=== PATIENT | female | born 1945 | race African-American/Black ===

== ENCOUNTER 2016-07-30 12:18 | Inpatient (IN) ==
[2016-07-30] MEDS ORDERED: FUROSEMIDE 100 MG/10 ML VIAL IV STA (14:17)
[2016-07-30] MEDS ORDERED: methylPREDNISolone SOD SUC 125 MG/2 ML VIAL IV STA (14:17)
[2016-07-30] MEDS ORDERED: cloNIDine 0.1 MG TABLET PO STA (14:17)
[2016-07-30] MEDS ORDERED: ALBUTEROL/IPRATROPIUM 3 ML NEB RESP TX STA (14:17)
[2016-07-30] MEDS ORDERED: cefTRIAXone 1,000 MG in SODIUM CHLORIDE 0.9% 100 ML IV STA (14:17)
[2016-07-30 14:28] LABS: Basophils # 0.1 10*3/uL (0.0-0.2); Eosinophils # 0.2 10*3/uL (0.0-0.87); Eosinophils % 3.5 % (0.00-10.9); Hematocrit 31.4 VOL% (35.7-47.0); Hemoglobin 10.6 GM/DL (12.0-16.0); Immature Granulocytes % 0.4 %; Immature Granulocytes Absolute 0.02 #; Lymphocytes % 20.8 % (21.3-54.2); Mean Corpuscular HGB Conc 33.8 GM/DL (32-36); Mean Corpuscular Hemoglobin 28 PG (27-34); Mean Corpuscular Volume 84.2 FL (87-102); Mean Platelet Volume 8.4 FL (9.6-12.0); Monocytes # 0.3 10*3/uL (0.11-0.8); Monocytes % 5.8 % (1.7-12.7); Neutrophils # 3.3 10*3/uL (1.4-7.4); Neutrophils % 68.5 % (38.7-73.9); Platelet Count 159 T/CUMM (130-400); Red Blood Count 3.73 MC/CUMM (3.8-5.5); Red Cell Distribution Width 16.4 % (9.3-17.3); White Blood Count 4.8 T/CUMM (4-12)
[2016-07-30] MEDS ORDERED: methylPREDNISolone SOD SUC 125 MG/2 ML VIAL ONE (14:32)
[2016-07-30] MEDS ORDERED: FUROSEMIDE 40 MG/4 ML VIAL ONE (14:32)
[2016-07-30] MEDS ORDERED: FUROSEMIDE 20 MG/2 ML VIAL ONE (14:32)
[2016-07-30] MEDS ORDERED: cefTRIAXone 1,000 MG VIAL ONE (14:32)
[2016-07-30] MEDS ORDERED: cloNIDine 0.1 MG TABLET ONE (14:32)
--- NOTE | 2016-07-30 14:40 | Emergency Department Note ---
Vamsi Priest Meredith, am scribing for, and in the presence of, Brandon Hurt MD 13:50. Licha Priest Charles R, MD, personally performed the services described in this documentation, ascribed by Gabby Agustin in my presence, and it is both accurate and complete [id number] . Arrival - Arrival Chief Complaint: Upper Respiratory Stated Complaint: cough,possible pneumonia,sent by clinic ED Nursing Triage Note: pt ambulatory to triage with c/o having cough x 2 weeks pt states she has been on antibiotics and they are not working so she went to Dr. dubon at clinic in [facility] and was told to come here for possible pneumonia. Mode of Arrival: Ambulatory Limitations: No Limitations Source: Patient, Old Records Reviewed, RN Notes Reviewed Time Seen by Provider: 07/30/16 13:45 - History of Present Illness HPI Narrative: Pt is a 71 y/o black female reporting to the ED with c/o cough and shortness of breath for the past 2 weeks. She went to see Dr. Camp in [facility] and was told to come here for possible pneumonia. Pt has been on antibiotics which have not been helping. She has a history of HTN, thyroid disorder, renal failure, arthritis, and anemia. Pt is a some day smoker. She attends dialysis on Sat/ /Sat. Onset (ago): week(s) Allergies/Adverse Reactions: Allergies Allergy/AdvReac Type Severity Reaction Status Date / Time codeine Allergy Severe SHORTNESS Verified 02/22/16 09:11 OF BREATH pineapple Allergy Mild ITCHING Verified 02/22/16 09:11 Home Medications: Home Medications Medication Instructions Recorded Confirmed Type Omeprazole [Prilosec] 40 mg PO DAILY 03/17/15 07/30/16 History Amlodipine Besylate 5 mg PO DAILY 02/22/16 07/30/16 History Calcium Acetate 667 mg PO TID 02/22/16 07/30/16 History Cinacalcet [Sensipar] 30 mg PO BEDTIME 02/22/16 07/30/16 History Review of System - Review of System 12 point system: reviewed and no additional remarkable complaints except as stated - Review of System Respiratory: Present: as per HPI, cough, other (SOB) Medical,Surgical,& Family Hx - Medical History Cardio: History of: Hypertension No history of: Cardiovascular Problems Neurology: No history of: Seizures Endocrine: History of: Thyroid Disorder Respiratory: No history of: Respiratory Problems Renal: History of: Dialysis, Renal Failure No history of: Renal Problems Gastrointestinal: History of: GI Problems (PUD (non-bleeding)) Musculoskeletal: History of: Musculoskeletal Problems (arthritis (mainly hip pain)) Hematology: History of: Anemia (takes iron) - Surgical History HEENT Surgeries: Surgical HX of: Thyroid Surgery Abdominal Surgeries: Surgical HX of: Abdominal Surgery (for esophageal stricture ), EGD Reproductive Surgeries: Surgical HX of;: Breast Surgery (LEFT LUMPECTOMY), Gynecologic Surgery - Family History Family History: Denies;: Additional Family History - Social History Smoking Status: Current some day smoker Frequency of Alcohol Use: None Type of Drug Use: None Exam Vital Signs: Vital Signs Temperature 98.9 F 07/30/16 13:00 Pulse Rate 96 H 07/30/16 14:50 Respiratory Rate 20 07/30/16 14:50 Blood Pressure 206/110 07/30/16 13:00 O2 Sat by Pulse Oximetry 100 07/30/16 14:50 - General General appearance: alert, in no apparent distress - Head Head exam: Present: atraumatic, normocephalic - Eye Eye exam: Present: normal appearance, PERRL, EOMI - ENT ENT exam: Present: mucous membranes moist, normal external ear exam - Neck Neck exam: Present: full ROM, trachea midline. Absent: tenderness, meningismus , lymphadenopathy, thyromegaly - Chest Chest inspection: Present: symmetric chest wall rise. Absent: tenderness, rash - Respiratory Respiratory exam: Present: normal lung sounds bilaterally. Absent: respiratory distress - Cardiovascular Cardiovascular exam: Present: regular rate, normal rhythm, normal heart sounds. Absent: murmur, rubs, gallop - Abdominal Exam Abdominal exam: Present: soft, normal bowel sounds. Absent: distention, tenderness - Extremities Exam Extremities exam: Present: full ROM, normal capillary refill. Absent: tenderness, pedal edema, calf tenderness - Back Exam Back exam: Present: full ROM. Absent: tenderness - Neurological Exam Neurological exam: Present: alert, oriented X3, CN II-XII intact. Absent: motor sensory deficit - Psychiatric Psychiatric exam: Present: normal affect, normal mood - Skin Skin exam: Present: warm, dry, intact, normal color Course - Consultations Consultation #1: Hospitalist will admit patient Time: 15:45 Results - Labs CBC & BMP: 07/30/16 14:15 07/30/16 14:15 Lab Results: I have reviewed the patients labs Labs: Laboratory Tests 07/30/16 14:15 WBC 4.8 RBC 3.73 L Hgb 10.6 L Hct 31.4 L MCV 84.2 L Plt Count 159 MPV 8.4 L Lymph % (Auto) 20.8 L Baso % (Auto) 1.0 H Lymph # (Auto) 1.0 L Laboratory Tests 07/30/16 14:15 Sodium 142 Potassium 4.2 Chloride 101 Carbon Dioxide 27 Anion Gap 18.2 H BUN 64 H Creatinine 7.20 H Alkaline Phosphatase 314 H Albumin 3.3 L Globulin 3.7 H Albumin/Globulin Ratio 0.8 L Influenza A: neg Influenza B: neg Laboratory Tests 07/30/16 14:15 B-Natriuretic Peptide 662 H - Diagnostic Findings Procedure: Chest x-ray: report reviewed by me (Recurrent CHF with additional atelectasis or other pleural-based pathology at the left lung base with small left pleural effusion. ) Disposition Clinical Impression: Fluid overload, Congestive heart failure, ESRD (end stage renal disease) on dialysis, Upper respiratory infection, Bronchitis Case discussed with: patient Disposition: Still a Patient Time of Disposition: 15:46
--- NOTE | 2016-07-30 14:49 | XRay Report ---
Portable chest Date: 07/30/2016 Clinical history: Shortness of breath Comparison: 03/17/2015 Technique: Portable AP sitting chest Findings: The heart is minimally to moderately enlarged with calcification in the aortic knob. Removal of the venous dialysis catheter. Diffuse parenchymal findings especially at the left lung base with small left pleural effusion. Stable mediastinum with degenerative changes. Impression: Recurrent CHF with additional atelectasis or other pleural-based pathology at the left lung base with small left pleural effusion. Follow-up chest x-ray recommended. PROCEDURE INTERPRETED AT [facility] DEPARTMENT OF RADIOLOGY Final Report Signed by: Dr. Crissy Roberts
[2016-07-30 14:52] LABS: Albumin 3.3 G/DL (3.4-5.0); Bilirubin,Total 0.6 MG/DL (0.2-1.0); Calcium 9.3 MG/DL (8.5-10.1); Magnesium 2.4 MG/DL (1.8-2.4); Osmolality,Calculated 299.1 MOS/KG (273-304); Potassium 4.2 MMOL/L (3.5-5.1)
--- NOTE | 2016-07-30 17:06 | Hospitalist Progress Note ---
Assessment and Plan (1) Congestive heart failure Status: Acute Assessment and plan: The source of the heart failure is likely a complication of ESRD; will obtain ECHO and consult nephrology for HD in AM. Current Visit: Yes (2) ESRD (end stage renal disease) on dialysis Status: Chronic Assessment and plan: Will consult nephrology for HD in AM. Current Visit: Yes Hospitalist: Subjective Interval history: This is a unfortunate 71 year-old elderly -[place]ym[place] female with a very extensive medical history of HTN, hypothyroidism, ESRD, arthritis, nicotine abuse, and anemia that presents to the ED after evaluation a local immediate care clinic. Apparently, she was seen there and a CXR was performed was informed that she "pneumonia" and that she should present to the ED for futher evaluation. The patient reports an onset of symptoms 2 week ago with gradual worsening of symptoms as time progressed. She had been seen and prescribed antibiotic therapy; however her symptoms did not improve. She currently undergoes dialysis three times weekly on . Exam - Constitutional Vitals: Period Temp Pulse Resp BP Sys/Chang Pulse Ox Last 24 Hr 98.9 F-98.9 F 92-96 18-20 206-206/110-110 94-100 General appearance: normal weight, no acute distress - Head Head exam: Present: normal inspection, normocephalic, atraumatic. Absent: abrasion, contusion, hematoma - Eye Eye exam: Present: EOMI. Absent: nystagmus Pupils: Present: CELESTINE. Absent: normal accommodation - ENT ENT exam: Present: normal exam - Neck Neck exam: Present: normal inspection. Absent: lymphadenopathy, meningismus, tenderness, thyromegaly - Respiratory Respiratory exam: Present: decreased breath sounds - Cardiovascular Cardiovascular exam: Present: diastolic murmur, regular rate and rhythm, systolic murmur. Absent: carotid bruit, gallop, JVD, rubs, tachycardia - GI/Abdominal GI/Abdominal exam: Present: normal bowel sounds, soft - Extremities Exam Extremities exam: Present: normal inspection, full ROM - Back Exam Back exam: Present: normal inspection - Neurological Exam Neurological exam: Present: alert, oriented X3 - Psychiatric Psychiatric exam: Present: normal affect - Skin Skin exam: Present: normal color, dry Results - Labs CBC & BMP: 07/30/16 14:15 07/30/16 14:15 Lab Results: I have reviewed the past 24 hour labs
[2016-07-30] MEDS ORDERED: traZODone 50 MG TABLET PO PRN (21:32)
[2016-07-30] MEDS ORDERED: DOCUSATE SODIUM 100 MG CAPSULE PO PRN (21:32)
[2016-07-30] MEDS ORDERED: MORPHINE 2 MG/1 ML SYRINGE IV PRN (21:32)
[2016-07-30] MEDS ORDERED: hydrALAZINE 20 MG/1 ML VIAL IV PRN (21:32)
[2016-07-30] MEDS ORDERED: ACETAMINOPHEN 325 MG TABLET PO PRN (21:32)
[2016-07-30] MEDS ORDERED: ONDANSETRON 4 MG/2 ML VIAL IV PRN (21:32)
[2016-07-30] MEDS: CALCIUM ACETATE 667 MG CAPSULE PO SCH (22:07)
[2016-07-30] MEDS: CINACALCET 30 MG TABLET PO SCH (22:07)
--- NOTE | 2016-07-31 07:01 | EKG Report ---
Stationary ECG Study [facility] Test Date: 07/31/2016 7:00:58 AM Pat Name: ROSA WEBSTER Department: Room: 267 Gender: F Cash Posting Representative: TESHA : 1945 Requested by: Jimmy Chavez Order Number: [id number] Reading MD: SAIDA WEIR Intervals [place] Rate: 84 P: 43 MD: 124 QRS: 16 QRSD: 83 T: 33 QT: 384 QTc: 425 Interpretive Statements SINUS RHYTHM POSSIBLE LEFT ATRIAL ABNORMALITY POSSIBLE SEPTAL MYOCARDIAL INFARCTION, OF INDETERMINATE AGE Electronically Signed On 08-01-16 20:43:37 CDT by SAIDA WEIR [email or web address]
--- NOTE | 2016-07-31 07:18 | XRay Report ---
Portable chest Date: 07/31/2016 Clinical history: Shortness of breath Comparison: 07/30/2016 Technique: Portable AP sitting chest Findings: Stable cardiomegaly with calcification in the aortic knob. Progressive parenchymal findings with larger left pleural effusion. Stable mediastinum and osseous structures. Impression: Progressive CHF/bilateral pneumonia with larger small left pleural effusion. PROCEDURE INTERPRETED AT [facility] DEPARTMENT OF RADIOLOGY Final Report Signed by: Dr. Crissy Roberts
--- NOTE | 2016-07-31 07:31 | Hospitalist History & Physical ---
<Petra Chavezda - Last Filed: 07/31/16 07:29> Assessment and Plan (1) Congestive heart failure Status: Acute Assessment and plan: The source of the heart failure is likely a complication of ESRD; will obtain ECHO and consult nephrology for HD in AM. Current Visit: Yes (2) ESRD (end stage renal disease) on dialysis Status: Chronic Assessment and plan: Will consult nephrology for HD in AM. Current Visit: Yes History of Present Illness Chief complaint: Pneumonia History of present illness: This is a unfortunate 71 year-old elderly -Irish female with a very extensive medical history of HTN, hypothyroidism, ESRD, arthritis, nicotine abuse, and anemia that presents to the ED after evaluation a local immediate care clinic. Apparently, she was seen there and a CXR was performed was informed that she "pneumonia" and that she should present to the ED for futher evaluation. The patient reports an onset of symptoms 2 week ago with gradual worsening of symptoms as time progressed. She had been seen and prescribed antibiotic therapy; however her symptoms did not improve. She currently undergoes dialysis three times weekly on . Home Medications Medication Instructions Recorded Confirmed Type Omeprazole [Prilosec] 40 mg PO DAILY 03/17/15 07/30/16 History Amlodipine Besylate 5 mg PO DAILY 02/22/16 07/30/16 History Calcium Acetate 667 mg PO TID 02/22/16 07/30/16 History Cinacalcet [Sensipar] 30 mg PO BEDTIME 02/22/16 07/30/16 History Allergies Allergy/AdvReac Type Severity Reaction Status Date / Time codeine Allergy Severe SHORTNESS Verified 02/22/16 09:11 OF BREATH pineapple Allergy Mild ITCHING Verified 02/22/16 09:11 Medical,Surgical,& Family Hx - Medical History Cardio: History of: Hypertension No history of: Cardiovascular Problems Neurology: No history of: Seizures Endocrine: History of: Thyroid Disorder Respiratory: No history of: Respiratory Problems Renal: History of: Dialysis, Renal Failure No history of: Renal Problems Gastrointestinal: History of: GI Problems (PUD (non-bleeding)) Musculoskeletal: History of: Musculoskeletal Problems (arthritis (mainly hip pain)) Hematology: History of: Anemia (takes iron) - Surgical History HEENT Surgeries: Surgical HX of: Thyroid Surgery Abdominal Surgeries: Surgical HX of: Abdominal Surgery (for esophageal stricture ), EGD Reproductive Surgeries: Surgical HX of;: Breast Surgery (LEFT LUMPECTOMY), Gynecologic Surgery - Family History Family History: Denies;: Additional Family History - Social History Smoking Status: Current some day smoker Frequency of Alcohol Use: None Type of Drug Use: None Exam - Constitutional Vitals: Period Temp Pulse Resp BP Sys/Chang Pulse Ox Last 24 Hr 97.2 F-98.1 F 80-94 16-20 148-182/84-100 100-100 General appearance: normal weight, no acute distress - Head Head exam: Present: normal inspection - Eye Eye exam: Present: EOMI Pupils: Present: CELESTINE - ENT ENT exam: Present: normal exam - Neck Neck exam: Present: normal inspection. Absent: lymphadenopathy, meningismus, tenderness, thyromegaly - Respiratory Respiratory exam: Present: clear to auscultation bilaterally - Cardiovascular Cardiovascular exam: Present: irregular rhythm, regular rate and rhythm. Absent : carotid bruit, diastolic murmur, JVD, systolic murmur, tachycardia - GI/Abdominal GI/Abdominal exam: Present: normal bowel sounds - Extremities Exam Extremities exam: Present: normal inspection, full ROM - Neurological Exam Neurological exam: Present: alert, oriented X3 - Psychiatric Psychiatric exam: Present: normal affect, normal mood - Skin Skin exam: Present: normal color, dry Results - Labs CBC & BMP: 07/30/16 14:15 07/30/16 14:15 Quality Measures - VTE Contraindication to Pharmacological VTE Prophylaxis: Clinical assessment deems Pt at low risk, no prophalaxis needed <Debra Ross - Last Filed: 07/31/16 08:14> History of Present Illness History of present illness: Ms. Stevens is a 71 year old female with ESRD on HD amongst other medical issues presents with progressive SOB and cough. CXR showed pneumonia vs CHF with left effusion. plan IV rocephin/Azithromax SC/BC IV Lasix Nephrology consult Exam - Constitutional Vitals: Period Temp Pulse Resp BP Sys/Chang Pulse Ox Last 24 Hr 97.2 F-98.1 F 80-94 16-20 148-182/84-100 100-100 Results - Labs CBC & BMP: 07/30/16 14:15 07/30/16 14:15
[2016-07-31] MEDS ORDERED: AZITHROMYCIN INJ 250 MG in SODIUM CHLORIDE 0.9% 250 ML IV SCH (08:30)
[2016-07-31] MEDS ORDERED: OMEPRAZOLE 20 MG CAPSULE PO SCH (09:00)
[2016-07-31] MEDS ORDERED: amLODIPine 5 MG TABLET PO SCH (09:00)
[2016-07-31] MEDS: PANTOPRAZOLE 40 MG TABLET PO SCH (09:30)
[2016-07-31] MEDS: CALCIUM ACETATE 667 MG CAPSULE PO SCH ×3 (09:30→20:30)
[2016-07-31 10:26] LABS: Basophils % 0.5 % (0.0-0.8); Hematocrit 30.2 VOL% (35.7-47.0); Hemoglobin 9.8 GM/DL (12.0-16.0); Immature Granulocytes % 0.3 %; Immature Granulocytes Absolute 0.01 #; Lymphocytes # 0.7 10*3/uL (1.4-4.0); Lymphocytes % 17.7 % (21.3-54.2); Mean Corpuscular HGB Conc 32.5 GM/DL (32-36); Mean Corpuscular Hemoglobin 28 PG (27-34); Mean Corpuscular Volume 87.3 FL (87-102); Mean Platelet Volume 9.1 FL (9.6-12.0); Monocytes # 0.3 10*3/uL (0.11-0.8); Monocytes % 7.8 % (1.7-12.7); Neutrophils # 2.8 10*3/uL (1.4-7.4); Neutrophils % 73.7 % (38.7-73.9); Platelet Count 170 T/CUMM (130-400); Red Blood Count 3.46 MC/CUMM (3.8-5.5); Red Cell Distribution Width 16.6 % (9.3-17.3); White Blood Count 3.9 T/CUMM (4-12)
[2016-07-31 10:49] LABS: Alanine Aminotransferase 26 U/L (13-56); Albumin 3.1 G/DL (3.4-5.0); Alkaline Phosphatase 271 U/L (45-117); Aspartate Amino Transferase 18 U/L (0-37); Bilirubin,Total < 0.39 MG/DL (0.2-1.0); Blood Urea Nitrogen 79 MG/DL (7-18); Calcium 8.7 MG/DL (8.5-10.1); Glucose 145 MG/DL (74-106); Magnesium 2.4 MG/DL (1.8-2.4); Osmolality,Calculated 312.8 MOS/KG (273-304); Phosphorous 3.1 MG/DL (2.5-4.9); Potassium 4.4 MMOL/L (3.5-5.1); Sodium 144 MMOL/L (136-145); Total Protein 6.4 G/DL (6.4-8.3)
[2016-07-31 10:54] LABS: Risk Ratio 2.95; Thyroid Stimulating Hormone 0.825 uIU/ml (0.358-3.74); VLDL CHOLESTEROL 23.6 MG/DL
--- NOTE | 2016-07-31 11:57 | Hospitalist Progress Note ---
Assessment and Plan (1) Congestive heart failure Status: Acute Assessment and plan: The source of the heart failure is likely a complication of ESRD. Follow Echo, continue HD Current Visit: Yes (2) Pneumonia Status: Acute Assessment and plan: CXR showed pneumonia vs CHF with left effusion. plan IV rocephin/Azithromax SC/BC IV Lasix, continue HD. Current Visit: Yes (3) ESRD (end stage renal disease) on dialysis Status: Chronic Assessment and plan: continue HD Current Visit: Yes (4) HTN (hypertension) Status: Acute Assessment and plan: increase Norvasc to 5mg bid, follow response Current Visit: Yes Hospitalist: Subjective Interval history: Patient seen today during dialysis. She denies chest pain and SOB Exam - Constitutional Vitals: Period Temp Pulse Resp BP Sys/Chang Pulse Ox Last 24 Hr 97.2 F-98.1 F 80-94 16-20 148-182/84-100 100-100 General appearance: no acute distress - Head Head exam: Present: normal inspection - Respiratory Respiratory exam: Present: decreased breath sounds - Cardiovascular Cardiovascular exam: Present: regular rate and rhythm - GI/Abdominal GI/Abdominal exam: Present: normal bowel sounds - Extremities Exam Extremities exam: Present: normal inspection - Back Exam Back exam: Present: normal inspection - Neurological Exam Neurological exam: Present: alert, oriented X3 Results - Labs CBC & BMP: 07/31/16 10:18 07/31/16 10:18 Lab Results: I have reviewed the past 24 hour labs Quality Measures - VTE Contraindication to Pharmacological VTE Prophylaxis: Clinical assessment deems Pt at low risk, no prophalaxis needed
--- NOTE | 2016-07-31 16:06 | ECHO Report ---
Lacey Stevens Exam Date: 07/31/2016 08:34 Referring Physician: Technologist: Molly Nguyen RDCS Age: 71 Ht (in): Wt (lb): Gender: F Exam Location: [facility] Echo Indications: Chronic kidney disease, unspecified, Heart failure, unspecified, End stage renal disease, UTI, Nicotine dependence, cigarettes, uncomplicated, Essential (primary) hypertension, Shortness of breath, Cough, Cardiac murmur, unspecified, Bronchitis BP: / HR: Rhythm: Sinus Technical Quality: Good IMPRESSIONS Left ventricular ejection fraction is estimated at 55 %. Moderately increased upper septal thickness. Moderately increased right atrial size. Moderately to severely increased left atrial size. Mild-moderate mitral valve regurgitation. Mild tricuspid valve regurgitation. Tricuspid regurgitation velocities suggest a PAP of 63 mmHg. Large Left pleural effusion. MEASUREMENTS (Male / Female) Normal Values 2D ECHO LV Diastolic Diameter PLAX 4.4 cm 4.2 - 5.9 / 3.9 - 5.3 cm LV Systolic Diameter PLAX 2.5 cm LV Fractional Shortening PLAX 42.9 % IVS Diastolic Thickness 0.9 cm 0.6 - 1.0 / 0.6 - 0.9 cm LVPW Diastolic Thickness 0.9 cm 0.6 - 1.0 / 0.6 - 0.9 cm RV Internal Dim ED PLAX 3.2 cm Aortic Root Diameter 2.9 cm LA Systolic Diameter LX 4.5 cm 3.0 - 4.0 / 2.7 - 3.8 cm DOPPLER TR Peak Velocity 365.0 cm/s TR Peak Gradient 53.3 mmHg FINDINGS Left Ventricle Normal left ventricular cavity size. Normal left ventricular wall thickness. Left ventricular ejection fraction is estimated at 55 %.moderately increased upper septal thickness. Right Ventricle The right ventricle is normal in size and function. Right Atrium Moderately increased right atrial size. Left Atrium Moderately to severely increased left atrial size. Mitral Valve Mitral valve sclerosis. Mild mitral annular calcification. Mild- moderate mitral valve regurgitation. Aortic Valve Aortic valve sclerosis without stenosis or regurgitation. Tricuspid Valve Morphologically normal tricuspid valve. Mild tricuspid valve regurgitation. Tricuspid regurgitation velocities suggest a PAP of 63 mmHg. Pulmonic Valve Morphologically normal pulmonic valve without significant stenosis. There is no pulmonic regurgitation. Pericardium Normal pericardium without effusion. large Left pleural effusion. Aorta Normal ascending aorta dimension. Kimo Taylor MD (Electronically Signed) Final Date: 31 July 2016 16:05
[2016-07-31] MEDS: cefTRIAXone 1,000 MG in SODIUM CHLORIDE 0.9% 100 ML IV SCH (16:48)
[2016-07-31] MEDS: AZITHROMYCIN INJ 500 MG in SODIUM CHLORIDE 0.9% 250 ML IV SCH (17:46)
[2016-07-31] MEDS: amLODIPine 5 MG TABLET PO SCH (20:30)
[2016-07-31] MEDS: CINACALCET 30 MG TABLET PO SCH (20:30)
--- NOTE | 2016-07-31 20:43 | Nephrology Consult Note ---
History of Present Illness Chief complaint: ESRD History of present illness: Ms. Stevens is a 71 year old female admitted with shortness of breath and cough productive of clear sputum. She denies fever or hemoptysis. Home Medications Medication Instructions Recorded Confirmed Type Omeprazole [Prilosec] 40 mg PO DAILY 03/17/15 07/30/16 History Amlodipine Besylate 5 mg PO DAILY 02/22/16 07/30/16 History Calcium Acetate 667 mg PO TID 02/22/16 07/30/16 History Cinacalcet [Sensipar] 30 mg PO BEDTIME 02/22/16 07/30/16 History Allergies Allergy/AdvReac Type Severity Reaction Status Date / Time codeine Allergy Severe SHORTNESS Verified 02/22/16 09:11 OF BREATH pineapple Allergy Mild ITCHING Verified 02/22/16 09:11 Medical,Surgical,& Family Hx - Medical History Cardio: History of: Hypertension No history of: Cardiovascular Problems Neurology: No history of: Seizures Endocrine: History of: Thyroid Disorder Respiratory: No history of: Respiratory Problems Renal: History of: Dialysis, Renal Failure No history of: Renal Problems Gastrointestinal: History of: GI Problems (PUD (non-bleeding)) Musculoskeletal: History of: Musculoskeletal Problems (arthritis (mainly hip pain)) Hematology: History of: Anemia (takes iron) - Surgical History HEENT Surgeries: Surgical HX of: Thyroid Surgery Abdominal Surgeries: Surgical HX of: Abdominal Surgery (for esophageal stricture ), EGD Reproductive Surgeries: Surgical HX of;: Breast Surgery (LEFT LUMPECTOMY), Gynecologic Surgery - Family History Family History: Denies;: Additional Family History - Social History Smoking Status: Current some day smoker Frequency of Alcohol Use: None Type of Drug Use: None Review of Systems 12 point system: reviewed and no additional remarkable complaints except as stated Exam - Vital Signs Vital signs: Period Temp Pulse Resp BP Sys/Chang Pulse Ox Last 24 Hr 97.2 F-98.2 F 80-98 16-20 136-182/74-98 96-100 Exam: Gen.: Alert and oriented x3. ENT: Pupils equal round reactive to light. EOMs intact. Mucous membranes moist. Neck: Supple. No JVD or bruit. Cardiovascular: Regular rate and rhythm. No murmur rub or gallop Lungs: Minimal crackles in the bases Abdomen: Soft. Nontender. Positive bowel sounds. No organomegaly Extremities: No edema Results - Labs CBC & BMP: 07/31/16 10:18 07/31/16 10:18 Assessment and Plan (1) ESRD (end stage renal disease) on dialysis Status: Chronic Assessment and plan: 71-year-old woman admitted with: * ESRD. She is seen during dialysis. She is approximately 3 kg above dry weight * Volume overload. * Upper respiratory infection. She is not febrile. Was cell count is normal. She may have a viral infection. Repeat chest x-ray after volume removal * Hypertension * Anemia Current Visit: Yes (2) Fluid overload Status: Acute Current Visit: Yes (3) HTN (hypertension) Status: Acute Current Visit: Yes (4) Upper respiratory infection Status: Acute Current Visit: Yes (5) Anemia Status: Chronic Current Visit: No Qualifiers: Anemia type: other cause Other causes of anemia: chronic disease, kidney Qualified Code(s): N18.9 - Chronic kidney disease, unspecified
[2016-08-01 07:51] LABS: Basophils # 0.1 10*3/uL (0.0-0.2); Basophils % 1.1 % (0.0-0.8); Eosinophils # 0.3 10*3/uL (0.0-0.87); Eosinophils % 4.7 % (0.00-10.9); Hematocrit 32.6 VOL% (35.7-47.0); Hemoglobin 10.5 GM/DL (12.0-16.0); Immature Granulocytes % 0.4 %; Immature Granulocytes Absolute 0.02 #; Lymphocytes # 1.6 10*3/uL (1.4-4.0); Lymphocytes % 29.9 % (21.3-54.2); Mean Corpuscular HGB Conc 32.2 GM/DL (32-36); Mean Corpuscular Hemoglobin 28 PG (27-34); Mean Corpuscular Volume 87.4 FL (87-102); Monocytes # 0.4 10*3/uL (0.11-0.8); Monocytes % 7.3 % (1.7-12.7); Neutrophils % 56.6 % (38.7-73.9); Platelet Count 194 T/CUMM (130-400); Red Blood Count 3.73 MC/CUMM (3.8-5.5); Red Cell Distribution Width 17.2 % (9.3-17.3); White Blood Count 5.3 T/CUMM (4-12)
[2016-08-01 08:16] LABS: Osmolality,Calculated 288.3 MOS/KG (273-304); Potassium 4.1 MMOL/L (3.5-5.1)
[2016-08-01] MEDS: cefTRIAXone 1,000 MG in SODIUM CHLORIDE 0.9% 100 ML IV SCH (08:21)
[2016-08-01] MEDS: CALCIUM ACETATE 667 MG CAPSULE PO SCH ×3 (08:21→20:53)
[2016-08-01] MEDS: amLODIPine 5 MG TABLET PO SCH ×2 (08:21→20:53)
[2016-08-01] MEDS: PANTOPRAZOLE 40 MG TABLET PO SCH (08:22)
[2016-08-01] MEDS: AZITHROMYCIN INJ 500 MG in SODIUM CHLORIDE 0.9% 250 ML IV SCH (09:04)
--- NOTE | 2016-08-01 10:31 | Hospitalist Progress Note ---
Assessment and Plan (1) Congestive heart failure Status: Acute Assessment and plan: The source of the heart failure is likely a complication of ESRD. Echo showed normal LV size, wall thickness wth an EF-55% and moderately increased upper septal thickness. Plan continue with HD For possible dc after session in am Current Visit: Yes (2) Pneumonia Status: Acute Assessment and plan: CXR showed pneumonia vs CHF with left effusion. BC- showed no growth Influenza A and B -negative plan Continue IV rocephin/Azithromax,lasix and HD repeat CXR in am Current Visit: Yes (3) ESRD (end stage renal disease) on dialysis Status: Chronic Assessment and plan: continue HD Current Visit: Yes (4) HTN (hypertension) Status: Acute Assessment and plan: controlled, continue with current regime. Current Visit: Yes Hospitalist: Subjective Interval history: Patient seen this am, she states she feels better. She had an episode of dialysis yesterday.No chest pain, SOB. Exam - Constitutional Vitals: Period Temp Pulse Resp BP Sys/Chang Pulse Ox Last 24 Hr 97.5 F-98.2 F 81-98 16-20 136-159/74-82 95-99 General appearance: no acute distress - Respiratory Respiratory exam: Present: clear to auscultation bilaterally - Cardiovascular Cardiovascular exam: Present: regular rate and rhythm - GI/Abdominal GI/Abdominal exam: Present: normal bowel sounds - Extremities Exam Extremities exam: Present: normal inspection - Neurological Exam Neurological exam: Present: alert, oriented X3 - Psychiatric Psychiatric exam: Present: normal affect Results - Labs CBC & BMP: 08/01/16 07:21 08/01/16 07:21 Lab Results: I have reviewed the past 24 hour labs Quality Measures - VTE Contraindication to Pharmacological VTE Prophylaxis: Clinical assessment deems Pt at low risk, no prophalaxis needed
--- NOTE | 2016-08-01 12:03 | XRay Report ---
Portable chest Date: 08/01/2016 Clinical history: CHF versus pneumonia Comparison: 12/31/2016 Technique: Portable AP sitting chest Findings: The heart is smaller in size. Reduced parenchymal findings with stable left pleural effusion. Stable mediastinum and osseous structures. Osteopenia. Impression: Improved CHF/bilateral pneumonia with stable small left pleural effusion. PROCEDURE INTERPRETED AT [facility] DEPARTMENT OF RADIOLOGY Final Report Signed by: Dr. Crissy Roberts
--- NOTE | 2016-08-01 17:45 | Nephrology Progress Note ---
Nephrology - PN: Subj Interval history: Shortness of breath is much improved. Exam (PN)-Nephrology - Vital Signs Vital signs: Period Temp Pulse Resp BP Sys/Chang Pulse Ox Last 24 Hr 97.5 F-98.3 F 81-102 16-20 136-159/63-82 94-100 Exam: ENT: Normal Cardiovascular: Regular rate and rhythm. No murmur rub or gallop Lungs: Clear Extremities: No edema - Lab 08/01/16 07:21 08/01/16 07:21 Most recent lab results Calcium 9.0 MG/DL (8.5-10.1) 08/01/16 07:21 Phosphorus 3.1 MG/DL (2.5-4.9) 07/31/16 10:18 Magnesium 2.4 MG/DL (1.8-2.4) 07/31/16 10:18 Assessment and Plan (1) ESRD (end stage renal disease) on dialysis Status: Chronic Assessment and plan: 71-year-old woman admitted with: * ESRD. Dialysis tomorrow * Volume overload. Much improved. Additional volume will be removed during dialysis tomorrow * Upper respiratory infection. She is not febrile. Was cell count is normal. She may have a viral infection. Repeat chest x-ray after volume removal * Hypertension * Anemia Current Visit: Yes (2) Fluid overload Status: Acute Current Visit: Yes (3) HTN (hypertension) Status: Acute Current Visit: Yes (4) Upper respiratory infection Status: Acute Current Visit: Yes (5) Anemia Status: Chronic Current Visit: No Qualifiers: Anemia type: other cause Other causes of anemia: chronic disease, kidney Qualified Code(s): N18.9 - Chronic kidney disease, unspecified
[2016-08-01] MEDS: CINACALCET 30 MG TABLET PO SCH (20:53)
[2016-08-02 05:08] LABS: Basophils # 0.1 10*3/uL (0.0-0.2); Basophils % 1.3 % (0.0-0.8); Eosinophils # 0.3 10*3/uL (0.0-0.87); Eosinophils % 5.7 % (0.00-10.9); Hematocrit 32.1 VOL% (35.7-47.0); Hemoglobin 10.5 GM/DL (12.0-16.0); Immature Granulocytes % 0.5 %; Immature Granulocytes Absolute 0.03 #; Lymphocytes # 1.6 10*3/uL (1.4-4.0); Lymphocytes % 27.7 % (21.3-54.2); Mean Corpuscular HGB Conc 32.7 GM/DL (32-36); Mean Corpuscular Hemoglobin 29 PG (27-34); Mean Corpuscular Volume 87.5 FL (87-102); Mean Platelet Volume 8.9 FL (9.6-12.0); Monocytes # 0.4 10*3/uL (0.11-0.8); Monocytes % 7.9 % (1.7-12.7); Neutrophils # 3.2 10*3/uL (1.4-7.4); Neutrophils % 56.9 % (38.7-73.9); Platelet Count 208 T/CUMM (130-400); Red Blood Count 3.67 MC/CUMM (3.8-5.5); Red Cell Distribution Width 17.2 % (9.3-17.3); White Blood Count 5.6 T/CUMM (4-12)
[2016-08-02 05:38] LABS: Potassium 4.3 MMOL/L (3.5-5.1)
[2016-08-02] MEDS: cefTRIAXone 1,000 MG in SODIUM CHLORIDE 0.9% 100 ML IV SCH (08:20)
[2016-08-02] MEDS: amLODIPine 5 MG TABLET PO SCH (08:20)
[2016-08-02] MEDS: PANTOPRAZOLE 40 MG TABLET PO SCH (08:20)
[2016-08-02] MEDS: CALCIUM ACETATE 667 MG CAPSULE PO SCH ×2 (08:20→15:28)
--- NOTE | 2016-08-02 09:57 | Discharge Summary ---
<Miguelina Gordillo - Last Filed: 08/02/16 09:53> Hospital Course - Hospital Course Hospital Course: Ms Stevens is a 71AAF w history of HTN, hypothyroidism, ESRD on HD, arthritis, nicotine abuse, and anemia presenting to ED w pneumonia that failed outpatient treatment. her CXR was showing pneumonia vs CHF w effusion. she has been treated w abx and breathing treatments. BC and flu tests are all negative. dr marshall has been following pt for HD. pt is feeling better and reached maximum hospital benefit so is ready for discharge. - Time spent with patient Time with patient DS: Less than 30 minutes Discharge Plan - Discharge Data Disposition: Disch To Home/Self Care - Discharge Medications New Acetaminophen Tab [Tylenol Tab] 325 mg PO Q4H PRN #0 tablet PRN Reason: fever, headache/body aches Levofloxacin Tab [Levaquin Tab] 250 mg PO DAILY #7 tablet amLODIPine [Norvasc] 5 mg PO BID #60 tablet Continue Omeprazole [Prilosec] 40 mg PO DAILY Cinacalcet [Sensipar] 30 mg PO BEDTIME Calcium Acetate 667 mg PO TID Discontinued Amlodipine Besylate 5 mg PO DAILY - Follow Up or Referral - Forms/Instructions Exam - Constitutional Vitals: Period Temp Pulse Resp BP Sys/Chang Pulse Ox Last 24 Hr 97.6 F-98.3 F 81-89 18-20 143-158/63-88 97-100 Discharge Results Procedures and tests throughout hospitalization: Pending Orders 08/01/16 09:30 Sputum Culture and Gram Stain Routine Labs on day of discharge: Labs from last 24 hours 08/02/16 08/02/16 03:00 03:00 WBC 5.6 RBC 3.67 L Hgb 10.5 L Hct 32.1 L MCV 87.5 MCH 29 MCHC 32.7 RDW 17.2 Plt Count 208 MPV 8.9 L Neut % (Auto) 56.9 Lymph % (Auto) 27.7 Hawkins % (Auto) 7.9 Eos % (Auto) 5.7 Baso % (Auto) 1.3 H Neut # (Auto) 3.2 Lymph # (Auto) 1.6 Hawkins # (Auto) 0.4 Eos # (Auto) 0.3 Baso # (Auto) 0.1 Immature Gran % 0.5 Nucleated RBC % 0.0 Immature Gran # 0.03 Nucleated RBCs # 0.00 Sodium 143 Potassium 4.3 Chloride 103 Carbon Dioxide 25 Anion Gap 19.3 H BUN 52 H D Creatinine 7.20 H GFR Calculation 4 BUN/Creatinine Ratio 7.00 Glucose 69 L Calculated Osmolality 296.0 Calcium 9.0 Preliminary micro results at discharge 08/01/16 09:30 Sputum Culture - Preliminary Sputum Normal Mary at 24 hours DS: Provider Date of admission: 07/30/16 15:44 Primary care physician: Jasmeet Carlos Jr. Attending physician on admission: Debra Ross MD Consults: 07/30/16 21:32 Consult to Case Mgmt/Social Srvs [CONS] Routine Reason for Case Mgmt/Social Srvs: Rehab Consult to Physician [CONS] Routine Comment: Consulting Provider: Rahat Marshall Consulting Provider Notified: No When should Consulting Provider be notified: Now Consult to Specialist Group: Nephrology Person Notified: GLENDY Date Notified: 07/31/16 Time Notified: 09:00 Consult Notification Comment: LEFT MESSAGE OF CONSULT AT 0855 07/30/16 21:37 Consult to Pharmacy [CONS] Routine Reason for Pharmacy Consult: Adjust Meds Renal Funct Discharging clinician: KAILA Hernández Expected date of discharge: 08/02/16 <Debra Ross - Last Filed: 08/02/16 12:32> Hospital Course - Time spent with patient Time with patient DS: Greater than 30 minutes Diagnosis - Discharge Diagnosis (1) Congestive heart failure Status: Acute (2) Pneumonia Status: Acute (3) ESRD (end stage renal disease) on dialysis Status: Chronic (4) HTN (hypertension) Status: Acute Discharge Plan - Discharge Data Condition at Discharge: Stable Discharge Diet: heart healthy Activity: resume usual activities as tolerated - Forms/Instructions Additional Discharge Instructions: Follow with PCP in 1week, follow with Nephrology as scheduled Exam - Constitutional General appearance: no acute distress - Head Head exam: Present: normal inspection - ENT ENT exam: Present: normal exam - Respiratory Respiratory exam: Present: clear to auscultation bilaterally - Cardiovascular Cardiovascular exam: Present: regular rate and rhythm - GI/Abdominal GI/Abdominal exam: Present: normal bowel sounds - Extremities Exam Extremities exam: Present: normal inspection - Back Exam Back exam: Present: normal inspection - Neurological Exam Neurological exam: Present: alert, oriented X3
[2016-08-02] MEDS: AZITHROMYCIN INJ 500 MG in SODIUM CHLORIDE 0.9% 250 ML IV SCH (10:00)
--- NOTE | 2016-08-02 15:16 | Nephrology Progress Note ---
Nephrology - PN: Subj Interval history: Shortness of breath has resolved. No problems during dialysis today Exam (PN)-Nephrology - Vital Signs Vital signs: Period Temp Pulse Resp BP Sys/Chang Pulse Ox Last 24 Hr 97.6 F-98.3 F 81-89 18-20 143-158/63-88 97-100 Exam: ENT: Normal Cardiovascular: Regular rate and rhythm. No murmur rub or gallop Lungs: Clear Extremities: No edema - Lab 08/02/16 03:00 08/02/16 03:00 Most recent lab results Calcium 9.0 MG/DL (8.5-10.1) 08/02/16 03:00 Phosphorus 3.1 MG/DL (2.5-4.9) 07/31/16 10:18 Magnesium 2.4 MG/DL (1.8-2.4) 07/31/16 10:18 Assessment and Plan (1) ESRD (end stage renal disease) on dialysis Status: Chronic Assessment and plan: 71-year-old woman admitted with: * ESRD. Stable during dialysis * Volume overload. Resolved. Dry weight decreased. Agree with plans for discharge * Hypertension * Anemia Current Visit: Yes (2) Fluid overload Status: Acute Current Visit: Yes (3) HTN (hypertension) Status: Acute Current Visit: Yes (4) Upper respiratory infection Status: Acute Current Visit: Yes (5) Anemia Status: Chronic Current Visit: No Qualifiers: Anemia type: other cause Other causes of anemia: chronic disease, kidney Qualified Code(s): N18.9 - Chronic kidney disease, unspecified
[2016-08-02 15:35] VITALS: BP 159/83
--- NOTE | 2016-08-06 16:11 | Physician Query Form ---
CLICK EDIT DOCUMENT TO SELECT QUERY ANSWER --> OK --> SIGN Katy Denise RN Clinical Manager Language W) [phone] (f) [phone] [email or web address] PROVIDERS: Make your selection(s) from the choices in EACH section by typing an "x" and enter comments in the comment section. Please use your independent medical judgment in providing your response. This request does not imply that any particular answer is desired or expected. CLINICAL INDICATORS: (Providers should not edit this section) Based on documentation of "Fluid overload" Acute CHF" BNP of 662. Echo shows EF of 55%. Treated with IV Lasix. Please provide further specificity regarding CHF. ACUITY: ( x) Acute ( ) Chronic ( ) Acute on Chronic ( ) Clinicallly unable to determine TYPE: ( ) Systolic ( ) Diastolic ( ) Combined Systolic/Diastolic ( ) Other, please specify: ( ) Clinically unable to determine ( )x The patient does NOT have CHF COMMENTS: Use of terms such as suspected, likely, or probable (associated with a specific diagnosis that is being evaluated, monitored, or treated as if it exists) are acceptable and can be restated in the discharge summary if not ruled out. [facility]
== END 2016-08-02 16:54 | disposition home or self-care (01) | DRG 193 ==
LOC: N.ED 12:18 → N.EDINP 15:44 → N.TELES 20:05
PROVIDERS: ADMIT Internal Medicine; ATTEND Internal Medicine

== ENCOUNTER 2017-07-02 06:54 | Inpatient (IN) ==
[2017-07-02] MEDS ORDERED: PROPOFOL 200 MG/20 ML VIAL IV ONE (07:10)
[2017-07-02] MEDS ORDERED: PROPOFOL 1,000 MG/100 ML BOTTLE IV ONE ×2 (07:11→11:59)
[2017-07-02] MEDS ORDERED: VECURONIUM 10 MG VIAL IV ONE (07:19)
[2017-07-02] MEDS ORDERED: ROCURONIUM 100 MG/10 ML VIAL IV ONE ×2 (07:20→09:17)
[2017-07-02] MEDS ORDERED: PROPOFOL 200 MG/20 ML VIAL IV STA (07:20)
[2017-07-02] MEDS ORDERED: hydrALAZINE 20 MG/1 ML VIAL IV STA (07:29)
[2017-07-02] MEDS ORDERED: FUROSEMIDE INJ 160 MG in SODIUM CHLORIDE 0.9% 50 ML IV STA (07:29)
[2017-07-02 07:30] LABS: Basophils # 0.1 10*3/uL (0.0-0.2); Basophils % 0.9 % (0.0-0.8); Eosinophils # 0.5 10*3/uL (0.0-0.87); Hematocrit 29.6 VOL% (35.7-47.0); Hemoglobin 9.9 GM/DL (12.0-16.0); Immature Granulocytes % 0.8 %; Immature Granulocytes Absolute 0.09 #; Lymphocytes # 4.3 10*3/uL (1.4-4.0); Lymphocytes % 37.2 % (21.3-54.2); Mean Corpuscular HGB Conc 33.4 GM/DL (32-36); Mean Corpuscular Hemoglobin 29 PG (27-34); Mean Platelet Volume 8.7 FL (9.6-12.0); Monocytes # 0.7 10*3/uL (0.11-0.8); Monocytes % 5.8 % (1.7-12.7); Neutrophils % 51.3 % (38.7-73.9); Platelet Count 265 T/CUMM (130-400); Red Blood Count 3.44 MC/CUMM (3.8-5.5); Red Cell Distribution Width 17.7 % (9.3-17.3); White Blood Count 11.6 T/CUMM (4-12)
[2017-07-02 07:36] LABS: PT Patient Result 10.4 SECS; Partial Thromboplastin Time 24.3 SECS (0-40)
[2017-07-02 07:47] LABS: Albumin 3.4 G/DL (3.4-5.0); Calcium 9.6 MG/DL (8.5-10.1); Osmolality,Calculated 305.1 MOS/KG (273-304); Potassium 5.4 MMOL/L (3.5-5.1); Total Protein 7.9 G/DL (6.4-8.3); Troponin I Only 0.04 NG/ML (0.00-0.045)
[2017-07-02 07:57] LABS: Theophylline < 2.0 UG/ML (10-20)
[2017-07-02] MEDS: PROPOFOL 1,000 MG/100 ML BOTTLE IV SCH ×3 (08:02→21:15)
[2017-07-02] MEDS ORDERED: ALBUTEROL 2.5 MG/3 ML NEB RESP TX PRN (08:22)
[2017-07-02] MEDS ORDERED: LEVOFLOXACIN INJ 500 MG in PREMIX 1 EACH IV ONE (08:30)
[2017-07-02 08:56] LABS: ABG Base Excess 0.7 MMOL/L (-2.5-2.5); ABG HCO3 25.1 MMOL/L (20-26); ABG Oxygen Saturation 99.7 % (95-100); ABG PCO2 43.4 MM HG (35-48); ABG PH 7.384 (7.35-7.45); ABG TCO2 23.6 MMOL/L (23-27)
[2017-07-02] MEDS ORDERED: LEVOFLOXACIN INJ 100 ML IV ONE (09:32)
[2017-07-02 10:07] LABS: Lactic Acid 2.1 MMOL/L (0.4-2.0)
[2017-07-02] MEDS ORDERED: VANCOMYCIN INJ 750 MG in SODIUM CHLORIDE 0.9% 250 ML IV SCH (10:30)
[2017-07-02] MEDS ORDERED: PROPOFOL 1,000 MG/100 ML BOTTLE IV SCH (12:30)
[2017-07-02] MEDS ORDERED: INFLUENZA VIRUS VACCINE 0.5 ML SYRINGE IM ONE (13:00)
[2017-07-02] MEDS ORDERED: IRON SUCROSE 100 MG/5 ML VIAL IV PRN (14:47)
[2017-07-02] MEDS: CALCIUM ACETATE 667 MG CAPSULE PO SCH ×2 (14:58→22:06)
[2017-07-02] MEDS: PANTOPRAZOLE 40 MG VIAL IV SCH (14:58)
[2017-07-02] MEDS: HEPARIN 5,000 UNIT/1 ML VIAL SUBCUT SCH ×2 (14:58→22:48)
[2017-07-02] MEDS: ASPIRIN 325 MG TABLET PO SCH (14:58)
[2017-07-02] MEDS ORDERED: IRON SUCROSE 100 MG/5 ML VIAL IV ONE (15:30)
[2017-07-02 17:34] LABS: CKMB % 4.5 %
[2017-07-02] MEDS ORDERED: DEXTROSE 50% 25 GM/50 ML VIAL IV ONE (17:34)
[2017-07-02] MEDS: DEXTROSE 50% 25 GM/50 ML VIAL IV PRN (17:35)
[2017-07-02 17:39] LABS: Troponin I Only 1.66 NG/ML (0.00-0.045)
[2017-07-02] MEDS ORDERED: CARVEDILOL 6.25 MG TABLET PO SCH (21:00)
[2017-07-02] MEDS ORDERED: CARVEDILOL 3.125 MG TABLET PO SCH (21:00)
[2017-07-02] MEDS: CINACALCET 30 MG TABLET PO SCH (22:06)
[2017-07-02] MEDS: fentaNYL 100 MCG/2 ML VIAL IV PRN (23:26)
[2017-07-03] MEDS: DEXTROSE 50% 25 GM/50 ML VIAL IV PRN ×2 (00:46→06:33)
[2017-07-03] MEDS: fentaNYL 100 MCG/2 ML VIAL IV PRN (03:34)
[2017-07-03 03:53] LABS: ABG Base Excess 7.6 MMOL/L (-2.5-2.5); ABG HCO3 31.4 MMOL/L (20-26); ABG PCO2 22.6 MM HG (35-48); ABG TCO2 25.5 MMOL/L (23-27)
[2017-07-03 04:00] LABS: ABG PH 7.693 (7.35-7.45)
[2017-07-03 04:54] LABS: Basophils % 0.6 % (0.0-0.8); Eosinophils # 0.2 10*3/uL (0.0-0.87); Eosinophils % 2.2 % (0.00-10.9); Hematocrit 25.1 VOL% (35.7-47.0); Hemoglobin 8.8 GM/DL (12.0-16.0); Immature Granulocytes % 0.4 %; Immature Granulocytes Absolute 0.03 #; Lymphocytes # 0.7 10*3/uL (1.4-4.0); Lymphocytes % 10.4 % (21.3-54.2); Mean Corpuscular HGB Conc 35.1 GM/DL (32-36); Mean Corpuscular Hemoglobin 29 PG (27-34); Mean Platelet Volume 9.3 FL (9.6-12.0); Monocytes # 0.6 10*3/uL (0.11-0.8); Monocytes % 9.2 % (1.7-12.7); Neutrophils # 5.3 10*3/uL (1.4-7.4); Neutrophils % 77.2 % (38.7-73.9); Platelet Count 199 T/CUMM (130-400); Red Blood Count 3.06 MC/CUMM (3.8-5.5); Red Cell Distribution Width 17.3 % (9.3-17.3); White Blood Count 6.8 T/CUMM (4-12)
[2017-07-03] MEDS: PROPOFOL 1,000 MG/100 ML BOTTLE IV SCH ×2 (05:25→08:10)
[2017-07-03 05:26] LABS: Calcium 8.8 MG/DL (8.5-10.1); Osmolality,Calculated 272.2 MOS/KG (273-304); Osmolality,Calculated 273.2 MOS/KG (273-304); Potassium 3.7 MMOL/L (3.5-5.1)
[2017-07-03 05:51] LABS: Risk Ratio 3.37
[2017-07-03 06:22] LABS: ABG Base Excess 2.8 MMOL/L (-2.5-2.5); ABG HCO3 26.9 MMOL/L (20-26); ABG Oxygen Saturation 98.3 % (95-100); ABG PCO2 41.8 MM HG (35-48); ABG PH 7.425 (7.35-7.45); ABG TCO2 25.4 MMOL/L (23-27)
[2017-07-03] MEDS: HEPARIN 5,000 UNIT/1 ML VIAL SUBCUT SCH ×3 (06:35→22:31)
[2017-07-03] MEDS: PANTOPRAZOLE 40 MG VIAL IV SCH (09:31)
[2017-07-03] MEDS: ASPIRIN 325 MG TABLET PO SCH (09:31)
[2017-07-03] MEDS: CALCIUM ACETATE 667 MG CAPSULE PO SCH ×3 (09:31→21:32)
[2017-07-03 09:32] LABS: ABG Base Excess 5.4 MMOL/L (-2.5-2.5); ABG HCO3 29.4 MMOL/L (20-26); ABG Oxygen Saturation 99.9 % (95-100); ABG PCO2 41.2 MM HG (35-48); ABG PH 7.465 (7.35-7.45); ABG TCO2 27.3 MMOL/L (23-27)
[2017-07-03] MEDS: CARVEDILOL 6.25 MG TABLET PO SCH ×2 (13:17→21:32)
[2017-07-03 13:21] LABS: ABG Base Excess 2.8 MMOL/L (-2.5-2.5); ABG HCO3 26.9 MMOL/L (20-26); ABG Oxygen Saturation 98.5 % (95-100); ABG PCO2 42.5 MM HG (35-48); ABG PH 7.419 (7.35-7.45); ABG TCO2 25.6 MMOL/L (23-27)
[2017-07-03] MEDS: CINACALCET 30 MG TABLET PO SCH (21:32)
[2017-07-03] MEDS: ATORVASTATIN 20 MG TABLET PO SCH (21:32)
[2017-07-04 05:56] LABS: Basophils # 0.1 10*3/uL (0.0-0.2); Basophils % 0.9 % (0.0-0.8); Eosinophils # 0.3 10*3/uL (0.0-0.87); Eosinophils % 3.8 % (0.00-10.9); Hematocrit 23.7 VOL% (35.7-47.0); Immature Granulocytes % 0.6 %; Immature Granulocytes Absolute 0.04 #; Lymphocytes # 0.9 10*3/uL (1.4-4.0); Lymphocytes % 13.8 % (21.3-54.2); Mean Corpuscular HGB Conc 33.8 GM/DL (32-36); Mean Corpuscular Hemoglobin 29 PG (27-34); Mean Corpuscular Volume 86.2 FL (87-102); Mean Platelet Volume 9.2 FL (9.6-12.0); Monocytes # 0.7 10*3/uL (0.11-0.8); Monocytes % 11.2 % (1.7-12.7); Neutrophils # 4.6 10*3/uL (1.4-7.4); Neutrophils % 69.7 % (38.7-73.9); Platelet Count 212 T/CUMM (130-400); Red Blood Count 2.75 MC/CUMM (3.8-5.5); Red Cell Distribution Width 17.3 % (9.3-17.3); White Blood Count 6.6 T/CUMM (4-12)
[2017-07-04] MEDS: HEPARIN 5,000 UNIT/1 ML VIAL SUBCUT SCH ×3 (06:00→22:57)
[2017-07-04 06:42] LABS: Calcium 8.8 MG/DL (8.5-10.1); Osmolality,Calculated 278.2 MOS/KG (273-304); Potassium 4.3 MMOL/L (3.5-5.1)
[2017-07-04] MEDS ORDERED: LEVOFLOXACIN INJ 250 MG in PREMIX 1 EACH IV SCH (09:00)
[2017-07-04] MEDS ORDERED: POTASSIUM CHLORIDE RIDER 10 MEQ in PREMIX 1 EACH IV PRN (09:36)
[2017-07-04] MEDS ORDERED: MAGNESIUM SULF RIDER 2 GM in PREMIX 1 EACH IV PRN (09:36)
[2017-07-04] MEDS: PANTOPRAZOLE 40 MG VIAL IV SCH (10:13)
[2017-07-04] MEDS: ASPIRIN 325 MG TABLET PO SCH (10:14)
[2017-07-04] MEDS: CALCIUM ACETATE 667 MG CAPSULE PO SCH ×3 (10:14→21:25)
[2017-07-04] MEDS: CARVEDILOL 12.5 MG TABLET PO SCH ×2 (10:14→21:25)
[2017-07-04] MEDS: fentaNYL 100 MCG/2 ML VIAL IV PRN ×3 (10:26→16:10)
[2017-07-04] MEDS: CARVEDILOL 6.25 MG TABLET PO SCH (10:31)
[2017-07-04] MEDS: ATORVASTATIN 20 MG TABLET PO SCH (21:25)
[2017-07-04] MEDS: CINACALCET 30 MG TABLET PO SCH (21:25)
[2017-07-05 05:35] LABS: Basophils % 0.6 % (0.0-0.8); Eosinophils # 0.2 10*3/uL (0.0-0.87); Eosinophils % 4.4 % (0.00-10.9); Hematocrit 21.9 VOL% (35.7-47.0); Hemoglobin 7.5 GM/DL (12.0-16.0); Immature Granulocytes % 0.7 %; Immature Granulocytes Absolute 0.04 #; Lymphocytes # 0.6 10*3/uL (1.4-4.0); Lymphocytes % 11.6 % (21.3-54.2); Mean Corpuscular HGB Conc 34.2 GM/DL (32-36); Mean Corpuscular Hemoglobin 29 PG (27-34); Mean Corpuscular Volume 84.9 FL (87-102); Mean Platelet Volume 8.8 FL (9.6-12.0); Monocytes # 0.8 10*3/uL (0.11-0.8); Monocytes % 15.1 % (1.7-12.7); Neutrophils # 3.7 10*3/uL (1.4-7.4); Neutrophils % 67.6 % (38.7-73.9); Platelet Count 208 T/CUMM (130-400); Red Blood Count 2.58 MC/CUMM (3.8-5.5); Red Cell Distribution Width 16.9 % (9.3-17.3); White Blood Count 5.4 T/CUMM (4-12)
[2017-07-05] MEDS: HEPARIN 5,000 UNIT/1 ML VIAL SUBCUT SCH (05:53)
[2017-07-05] MEDS ORDERED: HEPARIN/NACL 0.9% 2 UNITS/ML 2,000 ML IV ONE (06:35)
[2017-07-05] MEDS ORDERED: LIDOCAINE 1%/EPI INJ 20 ML VIAL ONE (06:35)
[2017-07-05 06:54] LABS: Calcium 9.2 MG/DL (8.5-10.1); Osmolality,Calculated 279.2 MOS/KG (273-304); Potassium 4.3 MMOL/L (3.5-5.1)
[2017-07-05] MEDS ORDERED: diphenhydrAMINE CAP 25 MG CAPSULE PO ONE (07:30)
[2017-07-05] MEDS ORDERED: DIAZEPAM 5 MG TABLET PO ONE (07:30)
[2017-07-05] MEDS: CALCIUM ACETATE 667 MG CAPSULE PO SCH ×3 (07:34→20:16)
[2017-07-05] MEDS: CARVEDILOL 12.5 MG TABLET PO SCH ×2 (07:34→20:16)
[2017-07-05] MEDS: ASPIRIN 325 MG TABLET PO SCH (07:34)
[2017-07-05] MEDS ORDERED: MIDAZOLAM 2 MG/2 ML VIAL ONE (07:44)
[2017-07-05] MEDS ORDERED: fentaNYL 100 MCG/2 ML VIAL ONE (07:44)
[2017-07-05] MEDS: PANTOPRAZOLE 40 MG VIAL IV SCH (11:04)
[2017-07-05] MEDS: traMADol 50 MG TABLET PO PRN (12:10)
[2017-07-05] MEDS: ATORVASTATIN 20 MG TABLET PO SCH (20:16)
[2017-07-05] MEDS: CINACALCET 30 MG TABLET PO SCH (20:16)
[2017-07-06] MEDS: traMADol 50 MG TABLET PO PRN (00:07)
[2017-07-06 05:58] LABS: Calcium 8.9 MG/DL (8.5-10.1); Osmolality,Calculated 276.7 MOS/KG (273-304); Potassium 4.8 MMOL/L (3.5-5.1)
[2017-07-06 06:20] LABS: Basophils % 0.2 % (0.0-0.8); Eosinophils # 0.2 10*3/uL (0.0-0.87); Eosinophils % 4.6 % (0.00-10.9); Hematocrit 19.6 VOL% (35.7-47.0); Hemoglobin 6.8 GM/DL (12.0-16.0); Immature Granulocytes % 0.4 %; Immature Granulocytes Absolute 0.02 #; Lymphocytes # 0.8 10*3/uL (1.4-4.0); Lymphocytes % 16.3 % (21.3-54.2); Mean Corpuscular HGB Conc 34.7 GM/DL (32-36); Mean Corpuscular Hemoglobin 30 PG (27-34); Mean Corpuscular Volume 85.6 FL (87-102); Mean Platelet Volume 9.4 FL (9.6-12.0); Monocytes # 0.6 10*3/uL (0.11-0.8); Monocytes % 11.7 % (1.7-12.7); Neutrophils # 3.2 10*3/uL (1.4-7.4); Neutrophils % 66.8 % (38.7-73.9); Platelet Count 259 T/CUMM (130-400); Red Blood Count 2.29 MC/CUMM (3.8-5.5); Red Cell Distribution Width 17.1 % (9.3-17.3); White Blood Count 4.8 T/CUMM (4-12)
[2017-07-06] MEDS: CALCIUM ACETATE 667 MG CAPSULE PO SCH ×4 (11:30→21:43)
[2017-07-06] MEDS: PANTOPRAZOLE 40 MG VIAL IV SCH (12:53)
[2017-07-06] MEDS: CLOPIDOGREL 75 MG TABLET PO SCH ×2 (12:57→12:58)
[2017-07-06] MEDS: CARVEDILOL 12.5 MG TABLET PO SCH ×2 (12:57→21:42)
[2017-07-06] MEDS: ASPIRIN 325 MG TABLET PO SCH (14:01)
[2017-07-06] MEDS: CINACALCET 30 MG TABLET PO SCH (21:42)
[2017-07-06] MEDS: ATORVASTATIN 20 MG TABLET PO SCH (21:42)
[2017-07-07] MEDS ORDERED: POTASSIUM CHLORIDE RIDER 10 MEQ in PREMIX 1 EACH IV PRN ×2 (08:57→09:12)
[2017-07-07] MEDS ORDERED: MAGNESIUM SULF RIDER 2 GM in PREMIX 1 EACH IV PRN ×2 (08:57→09:12)
[2017-07-07] MEDS: ASPIRIN EC 81 MG TABLET PO SCH (09:36)
[2017-07-07] MEDS: CLOPIDOGREL 75 MG TABLET PO SCH ×2 (09:36→09:40)
[2017-07-07] MEDS: ISOSORBIDE MONONITRATE 30 MG TABLET PO SCH (09:36)
[2017-07-07] MEDS: traMADol 50 MG TABLET PO PRN (09:36)
[2017-07-07] MEDS: CALCIUM ACETATE 667 MG CAPSULE PO SCH ×3 (09:37→21:56)
[2017-07-07] MEDS: CARVEDILOL 12.5 MG TABLET PO SCH ×2 (09:37→21:56)
[2017-07-07] MEDS: PANTOPRAZOLE 40 MG VIAL IV SCH (09:37)
[2017-07-07 09:57] LABS: Basophils # 0.1 10*3/uL (0.0-0.2); Eosinophils # 0.2 10*3/uL (0.0-0.87); Eosinophils % 3.2 % (0.00-10.9); Hematocrit 34.1 VOL% (35.7-47.0); Hemoglobin 11.9 GM/DL (12.0-16.0); Immature Granulocytes % 0.5 %; Immature Granulocytes Absolute 0.03 #; Lymphocytes # 0.8 10*3/uL (1.4-4.0); Mean Corpuscular HGB Conc 34.9 GM/DL (32-36); Mean Corpuscular Hemoglobin 30 PG (27-34); Mean Corpuscular Volume 85.3 FL (87-102); Mean Platelet Volume 8.9 FL (9.6-12.0); Monocytes # 0.7 10*3/uL (0.11-0.8); Monocytes % 10.4 % (1.7-12.7); Neutrophils # 4.6 10*3/uL (1.4-7.4); Neutrophils % 72.9 % (38.7-73.9); Platelet Count 291 T/CUMM (130-400); Red Cell Distribution Width 16.7 % (9.3-17.3); White Blood Count 6.3 T/CUMM (4-12)
[2017-07-07] MEDS: DICLOFENAC 1% GEL 100 GM TUBE TOP SCH ×3 (14:15→21:53)
[2017-07-07] MEDS: CINACALCET 30 MG TABLET PO SCH (21:56)
[2017-07-07] MEDS: ATORVASTATIN 20 MG TABLET PO SCH (21:56)
[2017-07-08 05:18] LABS: Basophils # 0.1 10*3/uL (0.0-0.2); Eosinophils # 0.3 10*3/uL (0.0-0.87); Eosinophils % 4.3 % (0.00-10.9); Hematocrit 33.3 VOL% (35.7-47.0); Hemoglobin 11.1 GM/DL (12.0-16.0); Immature Granulocytes % 0.7 %; Immature Granulocytes Absolute 0.04 #; Lymphocytes # 0.7 10*3/uL (1.4-4.0); Lymphocytes % 11.4 % (21.3-54.2); Mean Corpuscular HGB Conc 33.3 GM/DL (32-36); Mean Corpuscular Hemoglobin 29 PG (27-34); Mean Corpuscular Volume 87.2 FL (87-102); Mean Platelet Volume 8.7 FL (9.6-12.0); Monocytes # 0.7 10*3/uL (0.11-0.8); Monocytes % 12.8 % (1.7-12.7); Neutrophils % 69.8 % (38.7-73.9); Platelet Count 288 T/CUMM (130-400); Red Blood Count 3.82 MC/CUMM (3.8-5.5); Red Cell Distribution Width 16.5 % (9.3-17.3); White Blood Count 5.8 T/CUMM (4-12)
[2017-07-08 05:49] LABS: Calcium 8.7 MG/DL (8.5-10.1); Osmolality,Calculated 273.7 MOS/KG (273-304); Potassium 4.9 MMOL/L (3.5-5.1)
[2017-07-08] MEDS ORDERED: diphenhydrAMINE CAP 25 MG CAPSULE PO ONE (07:00)
[2017-07-08] MEDS ORDERED: DIAZEPAM 5 MG TABLET PO ONE (07:00)
[2017-07-08] MEDS: PANTOPRAZOLE 40 MG VIAL IV SCH (07:36)
[2017-07-08] MEDS: CLOPIDOGREL 75 MG TABLET PO SCH ×3 (07:38→10:07)
[2017-07-08] MEDS: ASPIRIN EC 81 MG TABLET PO SCH ×2 (07:39→10:06)
[2017-07-08] MEDS: CARVEDILOL 12.5 MG TABLET PO SCH ×3 (07:39→20:30)
[2017-07-08] MEDS: ISOSORBIDE MONONITRATE 30 MG TABLET PO SCH ×2 (07:39→10:06)
[2017-07-08] MEDS ORDERED: HEPARIN/NACL 0.9% 2 UNITS/ML 2,000 ML IV ONE (08:01)
[2017-07-08] MEDS ORDERED: LIDOCAINE 1%/EPI INJ 20 ML VIAL ONE (08:01)
[2017-07-08] MEDS ORDERED: fentaNYL 100 MCG/2 ML VIAL ONE (08:21)
[2017-07-08] MEDS ORDERED: MIDAZOLAM 2 MG/2 ML VIAL ONE (08:21)
[2017-07-08] MEDS ORDERED: HEPARIN 5,000 UNIT/1 ML VIAL ONE (08:42)
[2017-07-08] MEDS: DICLOFENAC 1% GEL 100 GM TUBE TOP SCH ×3 (09:00→20:31)
[2017-07-08] MEDS ORDERED: ceFAZolin 1,000 MG VIAL ONE (09:05)
[2017-07-08] MEDS: CALCIUM ACETATE 667 MG CAPSULE PO SCH ×3 (10:06→17:15)
[2017-07-08] MEDS: ATORVASTATIN 20 MG TABLET PO SCH (20:30)
[2017-07-08] MEDS: MORPHINE 2 MG/1 ML SYRINGE IV PRN (20:30)
[2017-07-08] MEDS: CINACALCET 30 MG TABLET PO SCH (20:30)
[2017-07-09] MEDS: CALCIUM ACETATE 667 MG CAPSULE PO SCH ×3 (09:52→17:25)
[2017-07-09] MEDS: ISOSORBIDE MONONITRATE 30 MG TABLET PO SCH (09:52)
[2017-07-09] MEDS: CARVEDILOL 12.5 MG TABLET PO SCH ×2 (09:52→21:11)
[2017-07-09] MEDS: ASPIRIN EC 81 MG TABLET PO SCH (09:52)
[2017-07-09] MEDS: DICLOFENAC 1% GEL 100 GM TUBE TOP SCH ×3 (09:55→21:11)
[2017-07-09] MEDS: PANTOPRAZOLE 40 MG VIAL IV SCH (13:28)
[2017-07-09] MEDS: ATORVASTATIN 20 MG TABLET PO SCH (21:11)
[2017-07-09] MEDS: CINACALCET 30 MG TABLET PO SCH (21:11)
[2017-07-10 05:43] LABS: Basophils # 0.1 10*3/uL (0.0-0.2); Basophils % 1.4 % (0.0-0.8); Eosinophils # 0.3 10*3/uL (0.0-0.87); Eosinophils % 5.2 % (0.00-10.9); Hematocrit 31.3 VOL% (35.7-47.0); Hemoglobin 10.3 GM/DL (12.0-16.0); Immature Granulocytes % 0.7 %; Immature Granulocytes Absolute 0.04 #; Lymphocytes # 0.8 10*3/uL (1.4-4.0); Lymphocytes % 13.9 % (21.3-54.2); Mean Corpuscular HGB Conc 32.9 GM/DL (32-36); Mean Corpuscular Hemoglobin 29 PG (27-34); Mean Corpuscular Volume 87.4 FL (87-102); Mean Platelet Volume 8.8 FL (9.6-12.0); Monocytes # 0.8 10*3/uL (0.11-0.8); Monocytes % 14.6 % (1.7-12.7); Neutrophils # 3.7 10*3/uL (1.4-7.4); Neutrophils % 64.2 % (38.7-73.9); Platelet Count 304 T/CUMM (130-400); Red Blood Count 3.58 MC/CUMM (3.8-5.5); Red Cell Distribution Width 16.9 % (9.3-17.3); White Blood Count 5.8 T/CUMM (4-12)
[2017-07-10 06:22] LABS: Calcium 8.8 MG/DL (8.5-10.1); Osmolality,Calculated 274.2 MOS/KG (273-304); Troponin I Only 0.023 NG/ML (0.00-0.045)
[2017-07-10] MEDS: ASPIRIN EC 81 MG TABLET PO SCH (09:42)
[2017-07-10] MEDS: CARVEDILOL 12.5 MG TABLET PO SCH ×2 (09:42→21:56)
[2017-07-10] MEDS: ISOSORBIDE MONONITRATE 30 MG TABLET PO SCH (09:42)
[2017-07-10] MEDS: CALCIUM ACETATE 667 MG CAPSULE PO SCH ×3 (09:42→17:06)
[2017-07-10] MEDS: DICLOFENAC 1% GEL 100 GM TUBE TOP SCH ×3 (09:44→21:57)
[2017-07-10] MEDS: PANTOPRAZOLE 40 MG VIAL IV SCH (10:12)
[2017-07-10] MEDS: CINACALCET 30 MG TABLET PO SCH (21:56)
[2017-07-10] MEDS: ATORVASTATIN 20 MG TABLET PO SCH (21:56)
[2017-07-11 07:36] LABS: Basophils # 0.1 10*3/uL (0.0-0.2); Basophils % 1.6 % (0.0-0.8); Eosinophils # 0.3 10*3/uL (0.0-0.87); Eosinophils % 5.7 % (0.00-10.9); Hematocrit 31.3 VOL% (35.7-47.0); Hemoglobin 10.4 GM/DL (12.0-16.0); Immature Granulocytes % 0.8 %; Immature Granulocytes Absolute 0.04 #; Lymphocytes # 0.7 10*3/uL (1.4-4.0); Lymphocytes % 13.3 % (21.3-54.2); Mean Corpuscular HGB Conc 33.2 GM/DL (32-36); Mean Corpuscular Hemoglobin 30 PG (27-34); Mean Corpuscular Volume 88.7 FL (87-102); Mean Platelet Volume 8.5 FL (9.6-12.0); Monocytes # 0.7 10*3/uL (0.11-0.8); Monocytes % 13.7 % (1.7-12.7); Neutrophils # 3.3 10*3/uL (1.4-7.4); Neutrophils % 64.9 % (38.7-73.9); Platelet Count 281 T/CUMM (130-400); Red Blood Count 3.53 MC/CUMM (3.8-5.5); Red Cell Distribution Width 16.7 % (9.3-17.3); White Blood Count 5.1 T/CUMM (4-12)
[2017-07-11 08:02] LABS: Osmolality,Calculated 280.2 MOS/KG (273-304)
[2017-07-11] MEDS: CALCIUM ACETATE 667 MG CAPSULE PO SCH ×3 (09:28→16:56)
[2017-07-11] MEDS: ASPIRIN EC 81 MG TABLET PO SCH (13:45)
[2017-07-11] MEDS: CARVEDILOL 12.5 MG TABLET PO SCH ×2 (13:45→21:24)
[2017-07-11] MEDS: PANTOPRAZOLE 40 MG VIAL IV SCH (13:45)
[2017-07-11] MEDS: DICLOFENAC 1% GEL 100 GM TUBE TOP SCH (13:48)
[2017-07-11] MEDS: ISOSORBIDE MONONITRATE 30 MG TABLET PO SCH ×2 (14:02→21:24)
[2017-07-11] MEDS: traMADol 50 MG TABLET PO PRN (16:58)
[2017-07-11] MEDS: ATORVASTATIN 20 MG TABLET PO SCH (21:24)
[2017-07-11] MEDS: CINACALCET 30 MG TABLET PO SCH (21:24)
[2017-07-12 05:02] LABS: Basophils # 0.1 10*3/uL (0.0-0.2); Basophils % 1.7 % (0.0-0.8); Eosinophils # 0.4 10*3/uL (0.0-0.87); Eosinophils % 6.9 % (0.00-10.9); Hematocrit 32.3 VOL% (35.7-47.0); Hemoglobin 10.5 GM/DL (12.0-16.0); Immature Granulocytes % 0.8 %; Immature Granulocytes Absolute 0.05 #; Lymphocytes % 17.1 % (21.3-54.2); Mean Corpuscular HGB Conc 32.5 GM/DL (32-36); Mean Corpuscular Hemoglobin 29 PG (27-34); Mean Corpuscular Volume 89.7 FL (87-102); Mean Platelet Volume 8.9 FL (9.6-12.0); Monocytes # 0.7 10*3/uL (0.11-0.8); Neutrophils # 3.7 10*3/uL (1.4-7.4); Neutrophils % 62.5 % (38.7-73.9); Platelet Count 328 T/CUMM (130-400); Red Cell Distribution Width 16.5 % (9.3-17.3); White Blood Count 5.9 T/CUMM (4-12)
[2017-07-12 05:31] LABS: Calcium 9.3 MG/DL (8.5-10.1); Potassium 4.6 MMOL/L (3.5-5.1)
[2017-07-12] MEDS ORDERED: VANCOMYCIN INJ 1,000 MG in SODIUM CHLORIDE 0.9% 250 ML IV ONE (06:00)
[2017-07-12] MEDS ORDERED: ceFAZolin 1,000 MG in SYRINGE 1 EACH IV ONE (06:30)
[2017-07-12] MEDS: LACTATED RINGERS 1,000 ML IV SCH ×2 (07:27→12:05)
[2017-07-12] MEDS: CALCIUM ACETATE 667 MG CAPSULE PO SCH ×3 (08:00→16:56)
[2017-07-12] MEDS: PANTOPRAZOLE 40 MG VIAL IV SCH (08:30)
[2017-07-12] MEDS: ASPIRIN EC 81 MG TABLET PO SCH (09:00)
[2017-07-12] MEDS ORDERED: TRANEXAMIC ACID 1,000 MG/10 ML VIAL IV ONE (09:21)
[2017-07-12] MEDS ORDERED: BACITRACIN OINT 0.9 GM PACK TOP ONE (09:21)
[2017-07-12] MEDS ORDERED: diphenhydrAMINE CAP 25 MG CAPSULE PO PRN (10:14)
[2017-07-12] MEDS ORDERED: ONDANSETRON 4 MG/2 ML VIAL IV PRN ×2 (10:14→10:50)
[2017-07-12] MEDS ORDERED: MAGNESIUM HYDROXIDE SUSP 30 ML UDCUP PO PRN (10:14)
[2017-07-12] MEDS ORDERED: MORPHINE 2 MG/1 ML SYRINGE IV PRN (10:14)
[2017-07-12] MEDS ORDERED: ONDANSETRON 4 MG/2 ML VIAL ONE ×2 (10:58→11:24)
[2017-07-12] MEDS ORDERED: HYDROmorphone 2 MG/1 ML VIAL ONE (10:58)
[2017-07-12] MEDS: HYDROmorphone 2 MG/1 ML VIAL IV PRN ×2 (11:04→11:14)
[2017-07-12] MEDS ORDERED: ETOMIDATE 40 MG/20 ML VIAL IV ONE (11:24)
[2017-07-12] MEDS ORDERED: SODIUM CHLORIDE 0.9% 100 ML IV ONE (11:24)
[2017-07-12] MEDS ORDERED: GLYCOPYRROLATE 0.4 MG/2 ML VIAL ONE (11:24)
[2017-07-12] MEDS ORDERED: PHENYLEPHRINE 10 MG/1 ML VIAL IV ONE (11:24)
[2017-07-12] MEDS ORDERED: NEOSTIGMINE 10 MG/10 ML VIAL ONE (11:24)
[2017-07-12] MEDS ORDERED: ACETAMINOPHEN 1,000 MG/100 ML VIAL IV ONE (11:24)
[2017-07-12] MEDS ORDERED: fentaNYL 100 MCG/2 ML VIAL ONE (11:24)
[2017-07-12] MEDS ORDERED: SEVOFLURANE 1 UNIT/15 MINUTE INH ONE (11:24)
[2017-07-12] MEDS ORDERED: ROCURONIUM 100 MG/10 ML VIAL IV ONE (11:24)
[2017-07-12] MEDS: CARVEDILOL 12.5 MG TABLET PO SCH ×2 (12:30→20:24)
[2017-07-12] MEDS: ISOSORBIDE MONONITRATE 30 MG TABLET PO SCH ×2 (12:30→20:24)
[2017-07-12] MEDS: MORPHINE 2 MG/1 ML SYRINGE IV PRN (14:52)
[2017-07-12] MEDS: ceFAZolin 1,000 MG in SYRINGE 1 EACH IV SCH ×2 (15:00→21:55)
[2017-07-12] MEDS: ATORVASTATIN 20 MG TABLET PO SCH (20:24)
[2017-07-12] MEDS: CINACALCET 30 MG TABLET PO SCH (20:24)
[2017-07-12] MEDS: DOCUSATE SODIUM 100 MG CAPSULE PO SCH (20:24)
[2017-07-13] MEDS: MORPHINE 2 MG/1 ML SYRINGE IV PRN (03:35)
[2017-07-13] MEDS: LACTATED RINGERS 1,000 ML IV SCH ×3 (03:41→21:59)
[2017-07-13 05:47] LABS: Basophils # 0.1 10*3/uL (0.0-0.2); Basophils % 0.8 % (0.0-0.8); Eosinophils # 0.3 10*3/uL (0.0-0.87); Eosinophils % 2.9 % (0.00-10.9); Hematocrit 27.5 VOL% (35.7-47.0); Hemoglobin 9.3 GM/DL (12.0-16.0); Immature Granulocytes % 0.6 %; Immature Granulocytes Absolute 0.05 #; Lymphocytes # 0.9 10*3/uL (1.4-4.0); Lymphocytes % 9.8 % (21.3-54.2); Mean Corpuscular HGB Conc 33.8 GM/DL (32-36); Mean Corpuscular Hemoglobin 30 PG (27-34); Mean Corpuscular Volume 87.9 FL (87-102); Mean Platelet Volume 8.5 FL (9.6-12.0); Monocytes # 0.9 10*3/uL (0.11-0.8); Monocytes % 10.4 % (1.7-12.7); Neutrophils # 6.5 10*3/uL (1.4-7.4); Neutrophils % 75.5 % (38.7-73.9); Platelet Count 307 T/CUMM (130-400); Red Blood Count 3.13 MC/CUMM (3.8-5.5); Red Cell Distribution Width 16.2 % (9.3-17.3); White Blood Count 8.7 T/CUMM (4-12)
[2017-07-13 06:31] LABS: Calcium 8.3 MG/DL (8.5-10.1); Osmolality,Calculated 280.4 MOS/KG (273-304); Potassium 5.7 MMOL/L (3.5-5.1)
[2017-07-13 06:32] LABS: Calcium 8.4 MG/DL (8.5-10.1); Osmolality,Calculated 280.4 MOS/KG (273-304); Potassium 5.6 MMOL/L (3.5-5.1)
[2017-07-13] MEDS: CALCIUM ACETATE 667 MG CAPSULE PO SCH ×3 (09:00→16:48)
[2017-07-13] MEDS: DOCUSATE SODIUM 100 MG CAPSULE PO SCH ×2 (09:00→22:00)
[2017-07-13] MEDS: CARVEDILOL 12.5 MG TABLET PO SCH ×2 (09:00→22:01)
[2017-07-13] MEDS: ASPIRIN EC 81 MG TABLET PO SCH (09:00)
[2017-07-13] MEDS: PANTOPRAZOLE 40 MG VIAL IV SCH (09:00)
[2017-07-13] MEDS: ISOSORBIDE MONONITRATE 30 MG TABLET PO SCH ×2 (09:00→22:00)
[2017-07-13] MEDS: CINACALCET 30 MG TABLET PO SCH (22:00)
[2017-07-13] MEDS: ATORVASTATIN 20 MG TABLET PO SCH (22:00)
[2017-07-14 05:22] LABS: Basophils # 0.1 10*3/uL (0.0-0.2); Basophils % 0.7 % (0.0-0.8); Eosinophils # 0.4 10*3/uL (0.0-0.87); Eosinophils % 4.3 % (0.00-10.9); Hematocrit 25.7 VOL% (35.7-47.0); Hemoglobin 8.8 GM/DL (12.0-16.0); Immature Granulocytes % 0.9 %; Immature Granulocytes Absolute 0.08 #; Lymphocytes # 0.7 10*3/uL (1.4-4.0); Mean Corpuscular HGB Conc 34.2 GM/DL (32-36); Mean Corpuscular Hemoglobin 30 PG (27-34); Mean Corpuscular Volume 88.3 FL (87-102); Mean Platelet Volume 8.9 FL (9.6-12.0); Monocytes % 11.5 % (1.7-12.7); Neutrophils # 6.5 10*3/uL (1.4-7.4); Neutrophils % 74.6 % (38.7-73.9); Platelet Count 250 T/CUMM (130-400); Red Blood Count 2.91 MC/CUMM (3.8-5.5); Red Cell Distribution Width 16.1 % (9.3-17.3); White Blood Count 8.8 T/CUMM (4-12)
[2017-07-14 05:53] LABS: Calcium 8.7 MG/DL (8.5-10.1); Osmolality,Calculated 279.8 MOS/KG (273-304); Potassium 4.4 MMOL/L (3.5-5.1)
[2017-07-14] MEDS: LACTATED RINGERS 1,000 ML IV SCH ×2 (07:54→12:45)
[2017-07-14] MEDS: PANTOPRAZOLE 40 MG VIAL IV SCH (09:48)
[2017-07-14] MEDS: CARVEDILOL 12.5 MG TABLET PO SCH ×2 (09:48→21:22)
[2017-07-14] MEDS: ASPIRIN EC 81 MG TABLET PO SCH (09:48)
[2017-07-14] MEDS: ISOSORBIDE MONONITRATE 30 MG TABLET PO SCH ×2 (09:48→21:22)
[2017-07-14] MEDS: DOCUSATE SODIUM 100 MG CAPSULE PO SCH ×2 (09:48→21:22)
[2017-07-14] MEDS: CALCIUM ACETATE 667 MG CAPSULE PO SCH ×3 (09:48→17:30)
[2017-07-14] MEDS: PANTOPRAZOLE 40 MG TABLET PO SCH (17:30)
[2017-07-14] MEDS: CINACALCET 30 MG TABLET PO SCH (21:21)
[2017-07-14] MEDS: ATORVASTATIN 20 MG TABLET PO SCH (21:22)
[2017-07-15 05:31] LABS: Basophils # 0.1 10*3/uL (0.0-0.2); Basophils % 0.7 % (0.0-0.8); Eosinophils # 0.4 10*3/uL (0.0-0.87); Eosinophils % 4.4 % (0.00-10.9); Hemoglobin 8.5 GM/DL (12.0-16.0); Immature Granulocytes % 0.8 %; Immature Granulocytes Absolute 0.07 #; Lymphocytes # 0.8 10*3/uL (1.4-4.0); Lymphocytes % 8.5 % (21.3-54.2); Mean Corpuscular Hemoglobin 30 PG (27-34); Mean Corpuscular Volume 87.7 FL (87-102); Mean Platelet Volume 9.1 FL (9.6-12.0); Monocytes # 0.8 10*3/uL (0.11-0.8); Monocytes % 8.5 % (1.7-12.7); Neutrophils # 6.9 10*3/uL (1.4-7.4); Neutrophils % 77.1 % (38.7-73.9); Platelet Count 240 T/CUMM (130-400); Red Blood Count 2.85 MC/CUMM (3.8-5.5); Red Cell Distribution Width 15.9 % (9.3-17.3)
[2017-07-15 05:44] LABS: Calcium 8.5 MG/DL (8.5-10.1); Osmolality,Calculated 276.5 MOS/KG (273-304); Potassium 4.7 MMOL/L (3.5-5.1)
[2017-07-15] MEDS: ASPIRIN EC 81 MG TABLET PO SCH (09:50)
[2017-07-15] MEDS: DOCUSATE SODIUM 100 MG CAPSULE PO SCH ×2 (09:50→21:22)
[2017-07-15] MEDS: CALCIUM ACETATE 667 MG CAPSULE PO SCH ×3 (09:50→17:02)
[2017-07-15] MEDS: ISOSORBIDE MONONITRATE 30 MG TABLET PO SCH ×2 (09:51→21:22)
[2017-07-15] MEDS: PANTOPRAZOLE 40 MG TABLET PO SCH (09:51)
[2017-07-15] MEDS: CARVEDILOL 12.5 MG TABLET PO SCH (09:55)
[2017-07-15] MEDS: CARVEDILOL 25 MG TABLET PO SCH (21:22)
[2017-07-15] MEDS: CINACALCET 30 MG TABLET PO SCH (21:22)
[2017-07-15] MEDS: ATORVASTATIN 20 MG TABLET PO SCH (21:22)
[2017-07-16 06:00] LABS: Basophils # 0.1 10*3/uL (0.0-0.2); Eosinophils # 0.5 10*3/uL (0.0-0.87); Eosinophils % 5.7 % (0.00-10.9); Hematocrit 24.6 VOL% (35.7-47.0); Immature Granulocytes Absolute 0.08 #; Lymphocytes # 0.9 10*3/uL (1.4-4.0); Lymphocytes % 10.8 % (21.3-54.2); Mean Corpuscular HGB Conc 32.5 GM/DL (32-36); Mean Corpuscular Hemoglobin 29 PG (27-34); Mean Corpuscular Volume 90.1 FL (87-102); Monocytes # 0.7 10*3/uL (0.11-0.8); Monocytes % 8.9 % (1.7-12.7); Neutrophils # 5.7 10*3/uL (1.4-7.4); Neutrophils % 72.6 % (38.7-73.9); Platelet Count 234 T/CUMM (130-400); Red Blood Count 2.73 MC/CUMM (3.8-5.5); Red Cell Distribution Width 15.9 % (9.3-17.3); White Blood Count 7.9 T/CUMM (4-12)
[2017-07-16 06:33] LABS: Calcium 8.3 MG/DL (8.5-10.1); Osmolality,Calculated 283.5 MOS/KG (273-304); Potassium 5.3 MMOL/L (3.5-5.1)
[2017-07-16] MEDS: PANTOPRAZOLE 40 MG TABLET PO SCH (08:38)
[2017-07-16] MEDS ORDERED: CLOPIDOGREL 75 MG TABLET PO SCH (11:30)
[2017-07-16] MEDS: CALCIUM ACETATE 667 MG CAPSULE PO SCH ×2 (12:33→12:34)
[2017-07-16] MEDS: CARVEDILOL 25 MG TABLET PO SCH (12:34)
[2017-07-16] MEDS: ISOSORBIDE MONONITRATE 30 MG TABLET PO SCH (12:34)
[2017-07-16] MEDS: ASPIRIN EC 81 MG TABLET PO SCH (12:34)
[2017-07-16] MEDS: DOCUSATE SODIUM 100 MG CAPSULE PO SCH (12:34)
[2017-07-16 13:11] VITALS: BP 123/63
== END 2017-07-16 15:30 | disposition home or self-care (01) | DRG 981 ==
LOC: N.ED 06:54 → SUATTDRO 08:18 → N.EDINP 08:18 → N.CC 12:00 → N.TELEN 07-04 17:12 → N.3E 07-14 14:52
PROVIDERS: ADMIT Internal Medicine; ATTEND Internal Medicine
PROC: CLCCHCL (ICD-10-PCS; 2017-07-05 08:15)

== ENCOUNTER 2017-11-18 19:52 | Inpatient (IN) ==
[2017-11-18 21:16] LABS: Basophils # 0.1 10*3/uL (0.0-0.2); Basophils % 1.6 % (0.0-0.8); Eosinophils # 0.2 10*3/uL (0.0-0.87); Hematocrit 32.1 VOL% (35.7-47.0); Hemoglobin 10.9 GM/DL (12.0-16.0); Immature Granulocytes % 0.3 %; Immature Granulocytes Absolute 0.01 #; Lymphocytes # 0.8 10*3/uL (1.4-4.0); Lymphocytes % 21.2 % (21.3-54.2); Mean Corpuscular Hemoglobin 29 PG (27-34); Mean Corpuscular Volume 86.3 FL (87-102); Monocytes # 0.3 10*3/uL (0.11-0.8); Monocytes % 8.6 % (1.7-12.7); Neutrophils # 2.4 10*3/uL (1.4-7.4); Neutrophils % 64.3 % (38.7-73.9); Platelet Count 165 T/CUMM (130-400); Red Blood Count 3.72 MC/CUMM (3.8-5.5); White Blood Count 3.7 T/CUMM (4-12)
[2017-11-18 21:37] LABS: Osmolality,Calculated 295.4 MOS/KG (273-304); Potassium 4.1 MMOL/L (3.5-5.1)
[2017-11-18] MEDS ORDERED: CEFEPIME 1,000 MG in SODIUM CHLORIDE 0.9% 100 ML IV STA (22:30)
[2017-11-18] MEDS ORDERED: hydrALAZINE 20 MG/1 ML VIAL IV STA (23:55)
[2017-11-19 01:58] LABS: Basophils # 0.1 10*3/uL (0.0-0.2); Basophils % 1.7 % (0.0-0.8); Eosinophils # 0.3 10*3/uL (0.0-0.87); Eosinophils % 6.7 % (0.00-10.9); Hematocrit 34.3 VOL% (35.7-47.0); Immature Granulocytes % 0.2 %; Immature Granulocytes Absolute 0.01 #; Lymphocytes # 1.2 10*3/uL (1.4-4.0); Lymphocytes % 25.9 % (21.3-54.2); Mean Corpuscular Hemoglobin 30 PG (27-34); Mean Corpuscular Volume 85.5 FL (87-102); Mean Platelet Volume 9.4 FL (9.6-12.0); Monocytes # 0.5 10*3/uL (0.11-0.8); Monocytes % 11.2 % (1.7-12.7); Neutrophils # 2.5 10*3/uL (1.4-7.4); Neutrophils % 54.3 % (38.7-73.9); Platelet Count 218 T/CUMM (130-400); Red Blood Count 4.01 MC/CUMM (3.8-5.5); White Blood Count 4.6 T/CUMM (4-12)
[2017-11-19 02:22] LABS: Calcium 8.9 MG/DL (8.5-10.1); Osmolality,Calculated 291.5 MOS/KG (273-304); Potassium 4.1 MMOL/L (3.5-5.1)
[2017-11-19 02:28] LABS: Troponin I Only 0.019 NG/ML (0.00-0.045)
[2017-11-19] MEDS ORDERED: hydrALAZINE 20 MG/1 ML VIAL IV PRN (05:22)
[2017-11-19] MEDS: CARVEDILOL 6.25 MG TABLET PO SCH ×2 (07:05→08:32)
[2017-11-19] MEDS: ISOSORBIDE MONONITRATE 30 MG TABLET PO SCH ×2 (07:05→08:33)
[2017-11-19] MEDS: ROSUVASTATIN 20 MG TABLET PO SCH (08:56)
[2017-11-19] MEDS: FUROSEMIDE 100 MG/10 ML VIAL IV SCH (08:56)
[2017-11-19] MEDS: ASPIRIN EC 325 MG TABLET PO SCH (08:56)
[2017-11-19] MEDS: CLOPIDOGREL 75 MG TABLET PO SCH (08:56)
[2017-11-19] MEDS: PANTOPRAZOLE 40 MG TABLET PO SCH (08:56)
[2017-11-19] MEDS ORDERED: ISOSORBIDE MONONITRATE 30 MG TABLET PO SCH (09:00)
[2017-11-19] MEDS ORDERED: CARVEDILOL 6.25 MG TABLET PO SCH (09:00)
[2017-11-19 09:41] LABS: Troponin I Only 0.026 NG/ML (0.00-0.045)
[2017-11-19] MEDS: CARVEDILOL 12.5 MG TABLET PO SCH (21:15)
[2017-11-20] MEDS: CLOPIDOGREL 75 MG TABLET PO SCH (08:30)
[2017-11-20] MEDS: PANTOPRAZOLE 40 MG TABLET PO SCH (08:30)
[2017-11-20] MEDS: CARVEDILOL 12.5 MG TABLET PO SCH (08:30)
[2017-11-20] MEDS: ROSUVASTATIN 20 MG TABLET PO SCH (08:30)
[2017-11-20] MEDS: ISOSORBIDE MONONITRATE 30 MG TABLET PO SCH (08:30)
[2017-11-20] MEDS: FUROSEMIDE 100 MG/10 ML VIAL IV SCH (08:30)
[2017-11-20] MEDS: ASPIRIN EC 325 MG TABLET PO SCH (08:30)
[2017-11-20 11:45] VITALS: BP 154/70
== END 2017-11-20 15:31 | disposition home or self-care (01) | DRG 640 ==
LOC: N.EDINP 19:52 → N.ED 19:52 → SUATTDRO 11-19 → N.2E 11-19 00:53 → SUATTDRO 11-19 09:41
PROVIDERS: ADMIT Internal Medicine; ATTEND Internal Medicine

== ENCOUNTER 2017-11-26 13:05 | Observation (INO) ==
[2017-11-28 12:32] VITALS: BP 140/69
== END 2017-11-28 15:32 | disposition home or self-care (01) ==
LOC: N.ED 13:05 → INTOOBSV 17:04 → N.TELES 18:44 → SUATTDRO 18:44 → N.TELES 18:45
PROVIDERS: ADMIT Emergency Medicine

== ENCOUNTER 2017-12-03 07:46 | Inpatient (IN) ==
[2017-12-03] MEDS ORDERED: ASPIRIN 325 MG TABLET PO STA (08:30)
[2017-12-03] MEDS ORDERED: METOPROLOL TARTRATE 5 MG/5 ML VIAL IV STA (08:30)
[2017-12-03] MEDS ORDERED: ENOXAPARIN 100 MG/ML SYRINGE SUBCUT STA (08:30)
[2017-12-03] MEDS ORDERED: NITROGLYCERIN 2% OINT 1 INCH/GM PACK TOP STA (08:30)
[2017-12-03] MEDS ORDERED: ONDANSETRON 4 MG/2 ML VIAL IV STA (08:30)
[2017-12-03] MEDS ORDERED: fentaNYL 100 MCG/2 ML VIAL IV STA (08:32)
[2017-12-03] MEDS ORDERED: ENOXAPARIN 40 MG/0.4 ML SYRINGE ONE (08:35)
[2017-12-03 09:02] LABS: Basophils % 0.7 % (0.0-0.8); Eosinophils # 0.2 10*3/uL (0.0-0.87); Eosinophils % 4.6 % (0.00-10.9); Hematocrit 33.2 VOL% (35.7-47.0); Hemoglobin 11.2 GM/DL (12.0-16.0); Immature Granulocytes % 0.5 %; Immature Granulocytes Absolute 0.02 #; Lymphocytes # 0.7 10*3/uL (1.4-4.0); Lymphocytes % 15.3 % (21.3-54.2); Mean Corpuscular HGB Conc 33.7 GM/DL (32-36); Mean Corpuscular Hemoglobin 30 PG (27-34); Monocytes # 0.4 10*3/uL (0.11-0.8); Neutrophils # 3.1 10*3/uL (1.4-7.4); Neutrophils % 70.9 % (38.7-73.9); Platelet Count 183 T/CUMM (130-400); Red Blood Count 3.73 MC/CUMM (3.8-5.5); Red Cell Distribution Width 17.1 % (9.3-17.3); White Blood Count 4.4 T/CUMM (4-12)
[2017-12-03 09:11] LABS: INR 1.1; PT Patient Result 11.5 SECS
[2017-12-03 09:37] LABS: Albumin 3.5 G/DL (3.4-5.0); Bilirubin,Total 0.5 MG/DL (0.2-1.0); Calcium 9.4 MG/DL (8.5-10.1); Osmolality,Calculated 281.7 MOS/KG (273-304); Potassium 3.5 MMOL/L (3.5-5.1); Total Protein 7.6 G/DL (6.4-8.3)
[2017-12-03] MEDS ORDERED: PROMETHAZINE 25 MG/1 ML VIAL IM PRN (09:54)
[2017-12-03] MEDS ORDERED: LACTULOSE 20 GM/30 ML UDCUP PO PRN (09:54)
[2017-12-03] MEDS ORDERED: NICOTINE 21 MG/24 HR PATCH TRANSDERM PRN (09:54)
[2017-12-03] MEDS ORDERED: ONDANSETRON 4 MG/2 ML VIAL IV PRN (09:54)
[2017-12-03] MEDS ORDERED: BISACODYL 5 MG TABLET PO PRN (09:54)
[2017-12-03] MEDS ORDERED: PANTOPRAZOLE 40 MG TABLET PO SCH (10:00)
[2017-12-03] MEDS ORDERED: ENOXAPARIN 30 MG/0.3 ML SYRINGE SUBCUT SCH (10:00)
[2017-12-03] MEDS ORDERED: hydrALAZINE 20 MG/1 ML VIAL IV PRN (10:02)
[2017-12-03 10:24] LABS: Thyroid Stimulating Hormone 2.54 uIU/ml (0.358-3.74)
[2017-12-03] MEDS ORDERED: amLODIPine 5 MG TABLET PO ONE (13:46)
[2017-12-03] MEDS ORDERED: RANOLAZINE 500 MG TABLET PO ONE (13:51)
[2017-12-03] MEDS ORDERED: LABETALOL 20 MG/4 ML SYRINGE IV PRN (16:08)
[2017-12-03] MEDS: APIXABAN 2.5 MG TABLET PO SCH (20:29)
[2017-12-03] MEDS: RANOLAZINE 500 MG TABLET PO SCH (20:29)
[2017-12-03] MEDS: CARVEDILOL 12.5 MG TABLET PO SCH (20:29)
[2017-12-03] MEDS ORDERED: RANOLAZINE 500 MG TABLET PO SCH (21:00)
[2017-12-04 05:47] LABS: Basophils % 0.9 % (0.0-0.8); Eosinophils # 0.2 10*3/uL (0.0-0.87); Eosinophils % 4.7 % (0.00-10.9); Hematocrit 28.3 VOL% (35.7-47.0); Hemoglobin 9.4 GM/DL (12.0-16.0); Immature Granulocytes % 0.3 %; Immature Granulocytes Absolute 0.01 #; Lymphocytes # 0.8 10*3/uL (1.4-4.0); Lymphocytes % 24.4 % (21.3-54.2); Mean Corpuscular HGB Conc 33.2 GM/DL (32-36); Mean Corpuscular Hemoglobin 29 PG (27-34); Mean Corpuscular Volume 87.9 FL (87-102); Mean Platelet Volume 8.9 FL (9.6-12.0); Monocytes # 0.4 10*3/uL (0.11-0.8); Monocytes % 11.8 % (1.7-12.7); Neutrophils % 57.9 % (38.7-73.9); Platelet Count 165 T/CUMM (130-400); Red Blood Count 3.22 MC/CUMM (3.8-5.5); Red Cell Distribution Width 16.7 % (9.3-17.3); White Blood Count 3.4 T/CUMM (4-12)
[2017-12-04 06:19] LABS: Bilirubin,Total 0.7 MG/DL (0.2-1.0); Calcium 8.9 MG/DL (8.5-10.1); Total Protein 6.7 G/DL (6.4-8.3)
[2017-12-04 06:20] LABS: Osmolality,Calculated 288.7 MOS/KG (273-304); Potassium 4.3 MMOL/L (3.5-5.1); Risk Ratio 3.36
[2017-12-04] MEDS ORDERED: ALBUTEROL 2.5 MG/3 ML NEB RESP TX PRN (08:29)
[2017-12-04] MEDS ORDERED: cefTRIAXone 1,000 MG in SYRINGE 1 EACH IV SCH (08:30)
[2017-12-04] MEDS ORDERED: amLODIPine 5 MG TABLET PO SCH (09:00)
[2017-12-04] MEDS: MULTIVITAMIN (CENTRUM) TABLET PO SCH (09:21)
[2017-12-04] MEDS: RANOLAZINE 500 MG TABLET PO SCH ×2 (09:21→21:40)
[2017-12-04] MEDS: CLOPIDOGREL 75 MG TABLET PO SCH (09:22)
[2017-12-04] MEDS: ISOSORBIDE MONONITRATE 60 MG TABLET PO SCH (09:22)
[2017-12-04] MEDS: ROSUVASTATIN 20 MG TABLET PO SCH (09:22)
[2017-12-04] MEDS: FERROUS SULFATE 325 MG TABLET PO SCH (09:22)
[2017-12-04] MEDS: APIXABAN 2.5 MG TABLET PO SCH ×2 (09:23→21:40)
[2017-12-04] MEDS: ASPIRIN EC 81 MG TABLET PO SCH (09:23)
[2017-12-04] MEDS: CARVEDILOL 12.5 MG TABLET PO SCH ×2 (09:23→21:40)
[2017-12-04] MEDS: amLODIPine 10 MG TABLET PO SCH (09:23)
[2017-12-04] MEDS: PANTOPRAZOLE 40 MG TABLET PO SCH ×2 (09:24)
[2017-12-04] MEDS: AZITHROMYCIN INJ 500 MG in SODIUM CHLORIDE 0.9% 250 ML IV SCH (09:37)
[2017-12-04] MEDS: cefTRIAXone 1,000 MG in SYRINGE 1 EACH IV SCH ×2 (12:12→23:02)
[2017-12-04] MEDS: ALBUTEROL/IPRATROPIUM 3 ML NEB RESP TX SCH ×2 (13:00→20:40)
[2017-12-04] MEDS: guaiFENesin/DM ER 600-30 MG TABLET PO SCH ×2 (16:14→21:40)
[2017-12-04] MEDS: ACETAMINOPHEN 325 MG TABLET PO PRN (16:14)
[2017-12-04] MEDS ORDERED: NITROGLYCERIN SL 0.4 MG TABLET SL PRN (19:37)
[2017-12-05] MEDS: ALBUTEROL/IPRATROPIUM 3 ML NEB RESP TX SCH ×5 (00:44→19:13)
[2017-12-05 06:36] LABS: Eosinophils # 0.2 10*3/uL (0.0-0.87); Hematocrit 28.8 VOL% (35.7-47.0); Hemoglobin 9.8 GM/DL (12.0-16.0); Immature Granulocytes % 0.3 %; Immature Granulocytes Absolute 0.01 #; Lymphocytes # 0.8 10*3/uL (1.4-4.0); Lymphocytes % 20.1 % (21.3-54.2); Mean Corpuscular Hemoglobin 30 PG (27-34); Mean Corpuscular Volume 86.7 FL (87-102); Mean Platelet Volume 9.6 FL (9.6-12.0); Monocytes # 0.4 10*3/uL (0.11-0.8); Monocytes % 9.9 % (1.7-12.7); Neutrophils # 2.4 10*3/uL (1.4-7.4); Neutrophils % 62.7 % (38.7-73.9); Platelet Count 172 T/CUMM (130-400); Red Blood Count 3.32 MC/CUMM (3.8-5.5); Red Cell Distribution Width 16.5 % (9.3-17.3); White Blood Count 3.8 T/CUMM (4-12)
[2017-12-05 06:48] LABS: Albumin 3.1 G/DL (3.4-5.0); Bilirubin,Total 0.8 MG/DL (0.2-1.0); Osmolality,Calculated 294.5 MOS/KG (273-304); Potassium 4.5 MMOL/L (3.5-5.1)
[2017-12-05] MEDS: AZITHROMYCIN INJ 500 MG in SODIUM CHLORIDE 0.9% 250 ML IV SCH (08:38)
[2017-12-05] MEDS: amLODIPine 10 MG TABLET PO SCH (08:39)
[2017-12-05] MEDS: APIXABAN 2.5 MG TABLET PO SCH ×2 (08:39→21:01)
[2017-12-05] MEDS: ROSUVASTATIN 20 MG TABLET PO SCH (08:39)
[2017-12-05] MEDS: FERROUS SULFATE 325 MG TABLET PO SCH (08:39)
[2017-12-05] MEDS: CLOPIDOGREL 75 MG TABLET PO SCH (08:39)
[2017-12-05] MEDS: PANTOPRAZOLE 40 MG TABLET PO SCH (08:39)
[2017-12-05] MEDS: MULTIVITAMIN (CENTRUM) TABLET PO SCH (08:39)
[2017-12-05] MEDS: ISOSORBIDE MONONITRATE 60 MG TABLET PO SCH (08:39)
[2017-12-05] MEDS: RANOLAZINE 500 MG TABLET PO SCH ×2 (08:39→21:01)
[2017-12-05] MEDS: ASPIRIN EC 81 MG TABLET PO SCH (08:40)
[2017-12-05] MEDS: guaiFENesin/DM ER 600-30 MG TABLET PO SCH ×2 (08:40→21:01)
[2017-12-05] MEDS: CARVEDILOL 12.5 MG TABLET PO SCH ×2 (08:40→21:01)
[2017-12-05] MEDS: ACETAMINOPHEN 325 MG TABLET PO PRN (10:35)
[2017-12-05] MEDS: cefTRIAXone 1,000 MG in SYRINGE 1 EACH IV SCH ×2 (10:36→23:40)
[2017-12-06] MEDS: ALBUTEROL/IPRATROPIUM 3 ML NEB RESP TX SCH ×3 (00:12→13:44)
[2017-12-06] MEDS ORDERED: LORazepam 0.5 MG TABLET PO ONE (00:45)
[2017-12-06] MEDS ORDERED: LORazepam 1 MG TABLET ONE (00:49)
[2017-12-06 04:56] LABS: Basophils % 1.1 % (0.0-0.8); Eosinophils # 0.1 10*3/uL (0.0-0.87); Eosinophils % 3.4 % (0.00-10.9); Hematocrit 30.3 VOL% (35.7-47.0); Immature Granulocytes % 0.3 %; Immature Granulocytes Absolute 0.01 #; Lymphocytes # 0.6 10*3/uL (1.4-4.0); Lymphocytes % 17.9 % (21.3-54.2); Mean Corpuscular Hemoglobin 30 PG (27-34); Mean Corpuscular Volume 89.4 FL (87-102); Mean Platelet Volume 9.2 FL (9.6-12.0); Monocytes # 0.3 10*3/uL (0.11-0.8); Monocytes % 7.7 % (1.7-12.7); Neutrophils # 2.5 10*3/uL (1.4-7.4); Neutrophils % 69.6 % (38.7-73.9); Platelet Count 161 T/CUMM (130-400); Red Blood Count 3.39 MC/CUMM (3.8-5.5); Red Cell Distribution Width 16.4 % (9.3-17.3); White Blood Count 3.5 T/CUMM (4-12)
[2017-12-06 05:22] LABS: Calcium 9.6 MG/DL (8.5-10.1); Osmolality,Calculated 276.8 MOS/KG (273-304); Potassium 4.4 MMOL/L (3.5-5.1)
[2017-12-06] MEDS ORDERED: AZITHROMYCIN 250 MG TABLET PO SCH (09:00)
[2017-12-06] MEDS: RANOLAZINE 500 MG TABLET PO SCH (09:53)
[2017-12-06] MEDS: MULTIVITAMIN (CENTRUM) TABLET PO SCH (09:53)
[2017-12-06] MEDS: ISOSORBIDE MONONITRATE 60 MG TABLET PO SCH (09:53)
[2017-12-06] MEDS: CARVEDILOL 12.5 MG TABLET PO SCH (09:54)
[2017-12-06] MEDS: ASPIRIN EC 81 MG TABLET PO SCH (09:54)
[2017-12-06] MEDS: guaiFENesin/DM ER 600-30 MG TABLET PO SCH (09:55)
[2017-12-06] MEDS: CLOPIDOGREL 75 MG TABLET PO SCH (09:55)
[2017-12-06] MEDS: amLODIPine 10 MG TABLET PO SCH (09:55)
[2017-12-06] MEDS: FERROUS SULFATE 325 MG TABLET PO SCH (09:56)
[2017-12-06] MEDS: PANTOPRAZOLE 40 MG TABLET PO SCH (09:56)
[2017-12-06] MEDS: APIXABAN 2.5 MG TABLET PO SCH (09:56)
[2017-12-06] MEDS: ROSUVASTATIN 20 MG TABLET PO SCH (09:56)
[2017-12-06 12:04] VITALS: BP 159/80
[2017-12-06] MEDS: ACETAMINOPHEN 325 MG TABLET PO PRN (12:26)
[2017-12-06] MEDS: cefTRIAXone 1,000 MG in SYRINGE 1 EACH IV SCH (12:27)
== END 2017-12-06 16:15 | disposition home or self-care (01) | DRG 302 ==
LOC: N.EDINP 07:46 → N.ED 07:46 → N.2W 13:09 → N.TELEN 14:06
PROVIDERS: ADMIT Hospitalist; ATTEND Hospitalist

== ENCOUNTER 2017-12-21 06:51 | Inpatient (IN) ==
[2017-12-21] MEDS ORDERED: ASPIRIN 325 MG TABLET PO STA (07:19)
[2017-12-21] MEDS ORDERED: NITROGLYCERIN 2% OINT 1 INCH/GM PACK TOP STA (07:19)
[2017-12-21 08:01] LABS: Basophils # 0.1 10*3/uL (0.0-0.2); Eosinophils # 0.1 10*3/uL (0.0-0.87); Eosinophils % 2.7 % (0.00-10.9); Immature Granulocytes % 0.6 %; Immature Granulocytes Absolute 0.03 #; Lymphocytes # 0.7 10*3/uL (1.4-4.0); Mean Corpuscular HGB Conc 32.3 GM/DL (32-36); Mean Corpuscular Hemoglobin 29 PG (27-34); Mean Corpuscular Volume 90.9 FL (87-102); Mean Platelet Volume 9.4 FL (9.6-12.0); Monocytes # 0.5 10*3/uL (0.11-0.8); Monocytes % 9.3 % (1.7-12.7); Neutrophils # 3.9 10*3/uL (1.4-7.4); Neutrophils % 73.4 % (38.7-73.9); Platelet Count 209 T/CUMM (130-400); Red Blood Count 3.41 MC/CUMM (3.8-5.5); Red Cell Distribution Width 15.8 % (9.3-17.3); White Blood Count 5.3 T/CUMM (4-12)
[2017-12-21 08:22] LABS: Band Neutrophils 5 % (0-10); Eosinophils 1 % (0-10); Lymphocytes 12 % (20-55); Segmented Neutrophils 72 % (50-85); Total Cells Counted 100
[2017-12-21 08:25] LABS: Bilirubin,Total 0.7 MG/DL (0.2-1.0); Calcium 9.7 MG/DL (8.5-10.1); Hypochromasia 1+; Osmolality,Calculated 287.4 MOS/KG (273-304); Ovalocytes Slight; Platelet Estimate Adequate; Potassium 3.7 MMOL/L (3.5-5.1); Total Protein 6.6 G/DL (6.4-8.3)
[2017-12-21] MEDS ORDERED: BISACODYL 5 MG TABLET PO PRN (09:37)
[2017-12-21] MEDS: FERROUS SULFATE 325 MG TABLET PO SCH (12:53)
[2017-12-21] MEDS: APIXABAN 2.5 MG TABLET PO SCH ×2 (12:53→21:39)
[2017-12-21] MEDS: CLOPIDOGREL 75 MG TABLET PO SCH (12:54)
[2017-12-21] MEDS: ACETAMINOPHEN 325 MG TABLET PO PRN (14:48)
[2017-12-21] MEDS ORDERED: CARVEDILOL 12.5 MG TABLET PO SCH (21:00)
[2017-12-21] MEDS: CARVEDILOL 25 MG TABLET PO SCH (22:20)
[2017-12-21] MEDS: RANOLAZINE 500 MG TABLET PO SCH (22:20)
[2017-12-21] MEDS: NITROGLYCERIN 2% OINT 1 INCH/GM PACK TOP SCH (22:32)
[2017-12-22] MEDS: VANCOMYCIN 50 MG/ML 60 ML/BOTTLE PO SCH ×4 (00:11→18:33)
[2017-12-22 05:10] LABS: Basophils # 0.1 10*3/uL (0.0-0.2); Basophils % 1.8 % (0.0-0.8); Eosinophils # 0.1 10*3/uL (0.0-0.87); Eosinophils % 2.9 % (0.00-10.9); Hematocrit 27.2 VOL% (35.7-47.0); Hemoglobin 8.8 GM/DL (12.0-16.0); Immature Granulocytes % 0.7 %; Immature Granulocytes Absolute 0.03 #; Lymphocytes # 0.8 10*3/uL (1.4-4.0); Lymphocytes % 17.3 % (21.3-54.2); Mean Corpuscular HGB Conc 32.4 GM/DL (32-36); Mean Corpuscular Hemoglobin 29 PG (27-34); Mean Corpuscular Volume 90.1 FL (87-102); Monocytes # 0.5 10*3/uL (0.11-0.8); Monocytes % 11.8 % (1.7-12.7); Neutrophils % 65.5 % (38.7-73.9); Platelet Count 214 T/CUMM (130-400); Red Blood Count 3.02 MC/CUMM (3.8-5.5); Red Cell Distribution Width 15.6 % (9.3-17.3); White Blood Count 4.5 T/CUMM (4-12)
[2017-12-22 05:26] LABS: Albumin 2.5 G/DL (3.4-5.0); Bilirubin,Total 0.8 MG/DL (0.2-1.0); Calcium 9.6 MG/DL (8.5-10.1); Osmolality,Calculated 279.7 MOS/KG (273-304); Potassium 3.2 MMOL/L (3.5-5.1)
[2017-12-22 05:31] LABS: Band Neutrophils 7 % (0-10); Eosinophils 3 % (0-10); Giant Platelets Few; Hypochromasia 1+; Lymphocytes 18 % (20-55); Ovalocytes Slight; Platelet Estimate Adequate; Segmented Neutrophils 64 % (50-85); Total Cells Counted 100
[2017-12-22] MEDS: MULTIVITAMIN (CENTRUM) TABLET PO SCH (09:32)
[2017-12-22] MEDS: ROSUVASTATIN 20 MG TABLET PO SCH (09:32)
[2017-12-22] MEDS: NITROGLYCERIN 2% OINT 1 INCH/GM PACK TOP SCH ×2 (09:32→20:41)
[2017-12-22] MEDS: FERROUS SULFATE 325 MG TABLET PO SCH (09:32)
[2017-12-22] MEDS: RANOLAZINE 500 MG TABLET PO SCH ×2 (09:32→20:47)
[2017-12-22] MEDS: ASPIRIN EC 81 MG TABLET PO SCH (09:33)
[2017-12-22] MEDS: ISOSORBIDE MONONITRATE 60 MG TABLET PO SCH (09:33)
[2017-12-22] MEDS: CARVEDILOL 25 MG TABLET PO SCH ×2 (09:33→20:44)
[2017-12-22] MEDS: CLOPIDOGREL 75 MG TABLET PO SCH (09:33)
[2017-12-22] MEDS: ACETAMINOPHEN 325 MG TABLET PO PRN (14:10)
[2017-12-22] MEDS ORDERED: ALUM/MAG/SIMETH/LIDO VISC 1:1 30 ML BOTTLE PO ONE ×2 (14:15)
[2017-12-22] MEDS ORDERED: SODIUM CHLORIDE 0.9% 1,000 ML IV PRN ×2 (14:26→14:27)
[2017-12-22] MEDS ORDERED: NOREPINEPHRINE 8 MG in SODIUM CHLORIDE 0.9% 242 ML IV PRN (15:22)
[2017-12-22] MEDS ORDERED: NOREPINEPHRINE 4 MG/4 ML VIAL IV ONE (15:34)
[2017-12-22] MEDS ORDERED: HYDROCORTISONE 100 MG VIAL IV ONE (17:43)
[2017-12-22 21:26] LABS: Hematocrit 30.2 VOL% (35.7-47.0); Hemoglobin 10.2 GM/DL (12.0-16.0)
[2017-12-23] MEDS: HYDROCORTISONE 100 MG VIAL IV SCH ×3 (01:06→18:14)
[2017-12-23] MEDS: VANCOMYCIN 50 MG/ML 60 ML/BOTTLE PO SCH ×4 (01:07→18:14)
[2017-12-23 03:51] LABS: Basophils % 0.5 % (0.0-0.8); Hematocrit 29.7 VOL% (35.7-47.0); Hemoglobin 9.8 GM/DL (12.0-16.0); Immature Granulocytes % 0.5 %; Immature Granulocytes Absolute 0.03 #; Lymphocytes # 0.4 10*3/uL (1.4-4.0); Lymphocytes % 6.6 % (21.3-54.2); Mean Corpuscular Hemoglobin 29 PG (27-34); Mean Corpuscular Volume 88.1 FL (87-102); Mean Platelet Volume 9.4 FL (9.6-12.0); Monocytes # 0.1 10*3/uL (0.11-0.8); Monocytes % 2.1 % (1.7-12.7); Neutrophils # 5.2 10*3/uL (1.4-7.4); Neutrophils % 90.3 % (38.7-73.9); Platelet Count 201 T/CUMM (130-400); Red Blood Count 3.37 MC/CUMM (3.8-5.5); Red Cell Distribution Width 15.8 % (9.3-17.3); White Blood Count 5.8 T/CUMM (4-12)
[2017-12-23 04:34] LABS: Albumin 2.6 G/DL (3.4-5.0); Bilirubin,Total 0.7 MG/DL (0.2-1.0); Calcium 9.3 MG/DL (8.5-10.1); Osmolality,Calculated 275.4 MOS/KG (273-304); Total Protein 6.1 G/DL (6.4-8.3)
[2017-12-23] MEDS: FERROUS SULFATE 325 MG TABLET PO SCH (08:21)
[2017-12-23] MEDS: RANOLAZINE 500 MG TABLET PO SCH ×2 (08:21→20:43)
[2017-12-23] MEDS: ROSUVASTATIN 20 MG TABLET PO SCH (08:21)
[2017-12-23] MEDS: MULTIVITAMIN (CENTRUM) TABLET PO SCH (08:21)
[2017-12-23] MEDS: ASPIRIN EC 81 MG TABLET PO SCH (08:22)
[2017-12-23] MEDS: NITROGLYCERIN 2% OINT 1 INCH/GM PACK TOP SCH ×2 (08:22→20:43)
[2017-12-23] MEDS: CARVEDILOL 25 MG TABLET PO SCH ×2 (08:22→20:43)
[2017-12-23] MEDS: ISOSORBIDE MONONITRATE 60 MG TABLET PO SCH (08:22)
[2017-12-24] MEDS: VANCOMYCIN 50 MG/ML 60 ML/BOTTLE PO SCH ×5 (00:55→23:30)
[2017-12-24] MEDS: HYDROCORTISONE 100 MG VIAL IV SCH ×3 (01:00→18:11)
[2017-12-24] MEDS: ASPIRIN EC 81 MG TABLET PO SCH (08:15)
[2017-12-24] MEDS: ROSUVASTATIN 20 MG TABLET PO SCH (08:15)
[2017-12-24] MEDS: RANOLAZINE 500 MG TABLET PO SCH ×2 (08:15→21:12)
[2017-12-24] MEDS: CARVEDILOL 25 MG TABLET PO SCH ×2 (08:15→21:12)
[2017-12-24] MEDS: FERROUS SULFATE 325 MG TABLET PO SCH (08:15)
[2017-12-24] MEDS: MULTIVITAMIN (CENTRUM) TABLET PO SCH (08:15)
[2017-12-24] MEDS: ISOSORBIDE MONONITRATE 60 MG TABLET PO SCH (08:15)
[2017-12-24] MEDS: NITROGLYCERIN 2% OINT 1 INCH/GM PACK TOP SCH ×2 (08:15→21:11)
[2017-12-24] MEDS: ONDANSETRON 4 MG/2 ML VIAL IV PRN (09:11)
[2017-12-24] MEDS: SUCRALFATE 1 GM/10 ML UDCUP PO SCH ×3 (11:06→21:12)
[2017-12-25] MEDS: HYDROCORTISONE 100 MG VIAL IV SCH (01:51)
[2017-12-25 04:18] LABS: Basophils % 0.6 % (0.0-0.8); Eosinophils # 0.1 10*3/uL (0.0-0.87); Eosinophils % 1.1 % (0.00-10.9); Hematocrit 30.4 VOL% (35.7-47.0); Hemoglobin 10.3 GM/DL (12.0-16.0); Immature Granulocytes % 1.5 %; Immature Granulocytes Absolute 0.09 #; Lymphocytes # 0.4 10*3/uL (1.4-4.0); Lymphocytes % 5.8 % (21.3-54.2); Mean Corpuscular HGB Conc 33.9 GM/DL (32-36); Mean Corpuscular Hemoglobin 29 PG (27-34); Mean Corpuscular Volume 86.6 FL (87-102); Mean Platelet Volume 9.1 FL (9.6-12.0); Monocytes # 0.3 10*3/uL (0.11-0.8); Monocytes % 5.5 % (1.7-12.7); Neutrophils # 5.3 10*3/uL (1.4-7.4); Neutrophils % 85.5 % (38.7-73.9); Platelet Count 196 T/CUMM (130-400); Red Blood Count 3.51 MC/CUMM (3.8-5.5); Red Cell Distribution Width 15.5 % (9.3-17.3); White Blood Count 6.2 T/CUMM (4-12)
[2017-12-25 04:55] LABS: Calcium 9.8 MG/DL (8.5-10.1); Osmolality,Calculated 283.5 MOS/KG (273-304); Potassium 3.1 MMOL/L (3.5-5.1); Troponin I Only 0.025 NG/ML (0.00-0.045)
[2017-12-25] MEDS: VANCOMYCIN 50 MG/ML 60 ML/BOTTLE PO SCH ×3 (05:30→17:44)
[2017-12-25] MEDS: POTASSIUM CHLORIDE 20 MEQ TABLET PO PRN ×4 (06:30→15:56)
[2017-12-25] MEDS: SUCRALFATE 1 GM/10 ML UDCUP PO SCH ×4 (07:47→21:28)
[2017-12-25] MEDS: CARVEDILOL 25 MG TABLET PO SCH ×2 (08:38→21:27)
[2017-12-25] MEDS: RANOLAZINE 500 MG TABLET PO SCH ×2 (08:38→21:27)
[2017-12-25] MEDS: ISOSORBIDE MONONITRATE 60 MG TABLET PO SCH (08:39)
[2017-12-25] MEDS: NITROGLYCERIN 2% OINT 1 INCH/GM PACK TOP SCH ×2 (08:40→21:29)
[2017-12-25] MEDS ORDERED: LIDOCAINE 2% 5 ML VIAL ONE (11:00)
[2017-12-25] MEDS ORDERED: PROPOFOL 200 MG/20 ML VIAL IV ONE (11:00)
[2017-12-25] MEDS ORDERED: PHENYLEPHRINE 1 MG/10 ML SYRINGE IV ONE (11:00)
[2017-12-25] MEDS ORDERED: ETOMIDATE 20 MG/10 ML VIAL IV ONE (11:00)
[2017-12-25] MEDS: ROSUVASTATIN 20 MG TABLET PO SCH (12:25)
[2017-12-25] MEDS: MULTIVITAMIN (CENTRUM) TABLET PO SCH (12:25)
[2017-12-25] MEDS: FERROUS SULFATE 325 MG TABLET PO SCH (12:25)
[2017-12-25] MEDS: ASPIRIN EC 81 MG TABLET PO SCH (12:25)
[2017-12-25] MEDS: HYDROCORTISONE 10 MG TABLET PO SCH (21:27)
[2017-12-26] MEDS: VANCOMYCIN 50 MG/ML 60 ML/BOTTLE PO SCH ×4 (00:05→18:16)
[2017-12-26 05:15] LABS: Basophils # 0.1 10*3/uL (0.0-0.2); Basophils % 0.7 % (0.0-0.8); Eosinophils # 0.2 10*3/uL (0.0-0.87); Eosinophils % 2.5 % (0.00-10.9); Hematocrit 31.5 VOL% (35.7-47.0); Hemoglobin 10.3 GM/DL (12.0-16.0); Immature Granulocytes Absolute 0.15 #; Lymphocytes # 0.5 10*3/uL (1.4-4.0); Lymphocytes % 7.2 % (21.3-54.2); Mean Corpuscular HGB Conc 32.7 GM/DL (32-36); Mean Corpuscular Hemoglobin 29 PG (27-34); Mean Corpuscular Volume 88.7 FL (87-102); Mean Platelet Volume 9.1 FL (9.6-12.0); Monocytes # 0.4 10*3/uL (0.11-0.8); Monocytes % 5.4 % (1.7-12.7); Neutrophils # 6.1 10*3/uL (1.4-7.4); Neutrophils % 82.2 % (38.7-73.9); Platelet Count 189 T/CUMM (130-400); Red Blood Count 3.55 MC/CUMM (3.8-5.5); Red Cell Distribution Width 15.8 % (9.3-17.3); White Blood Count 7.5 T/CUMM (4-12)
[2017-12-26 05:45] LABS: Calcium 9.6 MG/DL (8.5-10.1); Osmolality,Calculated 288.7 MOS/KG (273-304); Potassium 5.5 MMOL/L (3.5-5.1)
[2017-12-26] MEDS ORDERED: LORazepam 2 MG/1 ML VIAL IV ONE (10:40)
[2017-12-26] MEDS ORDERED: BISACODYL 5 MG TABLET PO ONE (12:00)
[2017-12-26 12:10] LABS: Basophils # 0.1 10*3/uL (0.0-0.2); Basophils % 1.1 % (0.0-0.8); Eosinophils # 0.2 10*3/uL (0.0-0.87); Eosinophils % 3.2 % (0.00-10.9); Hematocrit 32.1 VOL% (35.7-47.0); Hemoglobin 10.9 GM/DL (12.0-16.0); Immature Granulocytes % 2.4 %; Immature Granulocytes Absolute 0.17 #; Lymphocytes % 13.4 % (21.3-54.2); Mean Corpuscular Hemoglobin 29 PG (27-34); Mean Corpuscular Volume 86.1 FL (87-102); Mean Platelet Volume 9.4 FL (9.6-12.0); Monocytes # 0.6 10*3/uL (0.11-0.8); Monocytes % 7.6 % (1.7-12.7); Neutrophils # 5.2 10*3/uL (1.4-7.4); Neutrophils % 72.3 % (38.7-73.9); Platelet Count 215 T/CUMM (130-400); Red Blood Count 3.73 MC/CUMM (3.8-5.5); Red Cell Distribution Width 15.5 % (9.3-17.3); White Blood Count 7.2 T/CUMM (4-12)
[2017-12-26] MEDS: SUCRALFATE 1 GM/10 ML UDCUP PO SCH ×4 (12:33→21:25)
[2017-12-26 12:38] LABS: Alanine Aminotransferase 15 U/L (13-56); Albumin 2.8 G/DL (3.4-5.0); Alkaline Phosphatase 351 U/L (45-117); Aspartate Amino Transferase 14 U/L (0-37); Bilirubin,Total < 0.39 MG/DL (0.2-1.0); Blood Urea Nitrogen 9 MG/DL (7-18); Calcium 9.1 MG/DL (8.5-10.1); Glucose 95 MG/DL (74-106); Osmolality,Calculated 277.4 MOS/KG (273-304); Potassium 2.9 MMOL/L (3.5-5.1); Sodium 140 MMOL/L (136-145); Total Protein 6.7 G/DL (6.4-8.3)
[2017-12-26] MEDS ORDERED: POLYETHYLENE GLYCOL POWDER 255 GM BOTTLE PO ONE ×2 (13:00→15:00)
[2017-12-26] MEDS: RANOLAZINE 500 MG TABLET PO SCH ×2 (14:06→21:25)
[2017-12-26] MEDS: ASPIRIN EC 81 MG TABLET PO SCH (14:06)
[2017-12-26] MEDS: ROSUVASTATIN 20 MG TABLET PO SCH (14:06)
[2017-12-26] MEDS: MULTIVITAMIN (CENTRUM) TABLET PO SCH (14:06)
[2017-12-26] MEDS: FERROUS SULFATE 325 MG TABLET PO SCH (14:06)
[2017-12-26] MEDS: ISOSORBIDE MONONITRATE 60 MG TABLET PO SCH (14:06)
[2017-12-26] MEDS: HYDROCORTISONE 10 MG TABLET PO SCH ×2 (14:10→21:25)
[2017-12-26] MEDS: CARVEDILOL 25 MG TABLET PO SCH ×2 (14:10→21:25)
[2017-12-26] MEDS: NITROGLYCERIN 2% OINT 1 INCH/GM PACK TOP SCH ×2 (14:10→21:24)
[2017-12-26] MEDS ORDERED: MAGNESIUM CITRATE 300 ML BOTTLE PO ONE (21:00)
[2017-12-27] MEDS: VANCOMYCIN 50 MG/ML 60 ML/BOTTLE PO SCH ×5 (01:05→23:42)
[2017-12-27 06:24] LABS: Basophils % 0.5 % (0.0-0.8); Eosinophils % 0.7 % (0.00-10.9); Hematocrit 31.6 VOL% (35.7-47.0); Hemoglobin 10.4 GM/DL (12.0-16.0); Immature Granulocytes % 1.8 %; Immature Granulocytes Absolute 0.11 #; Lymphocytes # 0.6 10*3/uL (1.4-4.0); Lymphocytes % 9.5 % (21.3-54.2); Mean Corpuscular HGB Conc 32.9 GM/DL (32-36); Mean Corpuscular Hemoglobin 29 PG (27-34); Mean Corpuscular Volume 88.8 FL (87-102); Mean Platelet Volume 9.3 FL (9.6-12.0); Monocytes # 0.4 10*3/uL (0.11-0.8); Neutrophils % 81.5 % (38.7-73.9); Platelet Count 219 T/CUMM (130-400); Red Blood Count 3.56 MC/CUMM (3.8-5.5); Red Cell Distribution Width 15.7 % (9.3-17.3); White Blood Count 6.1 T/CUMM (4-12)
[2017-12-27 06:36] LABS: Calcium 9.8 MG/DL (8.5-10.1); Osmolality,Calculated 278.7 MOS/KG (273-304); Potassium 4.1 MMOL/L (3.5-5.1)
[2017-12-27 06:40] LABS: Albumin 2.8 G/DL (3.4-5.0); Bilirubin,Total 0.6 MG/DL (0.2-1.0); Calcium 9.6 MG/DL (8.5-10.1); Osmolality,Calculated 279.5 MOS/KG (273-304); Potassium 4.1 MMOL/L (3.5-5.1); Total Protein 6.5 G/DL (6.4-8.3)
[2017-12-27] MEDS: SUCRALFATE 1 GM/10 ML UDCUP PO SCH ×4 (07:47→21:12)
[2017-12-27] MEDS ORDERED: LIDOCAINE 2% 5 ML VIAL ONE (10:00)
[2017-12-27] MEDS ORDERED: ETOMIDATE 20 MG/10 ML VIAL IV ONE (10:00)
[2017-12-27] MEDS ORDERED: PROPOFOL 200 MG/20 ML VIAL IV ONE (10:00)
[2017-12-27] MEDS: ASPIRIN EC 81 MG TABLET PO SCH (17:17)
[2017-12-27] MEDS: MULTIVITAMIN (CENTRUM) TABLET PO SCH (17:18)
[2017-12-27] MEDS: FERROUS SULFATE 325 MG TABLET PO SCH (17:18)
[2017-12-27] MEDS: CARVEDILOL 25 MG TABLET PO SCH ×2 (17:18→21:13)
[2017-12-27] MEDS: ROSUVASTATIN 20 MG TABLET PO SCH (17:18)
[2017-12-27] MEDS: HYDROCORTISONE 10 MG TABLET PO SCH ×2 (17:18→21:13)
[2017-12-27] MEDS: ISOSORBIDE MONONITRATE 60 MG TABLET PO SCH (17:19)
[2017-12-27] MEDS: RANOLAZINE 500 MG TABLET PO SCH ×2 (17:21→21:12)
[2017-12-27] MEDS: NITROGLYCERIN 2% OINT 1 INCH/GM PACK TOP SCH ×2 (17:21→21:13)
[2017-12-28 05:18] LABS: Basophils # 0.1 10*3/uL (0.0-0.2); Basophils % 0.7 % (0.0-0.8); Eosinophils # 0.2 10*3/uL (0.0-0.87); Eosinophils % 2.7 % (0.00-10.9); Hematocrit 28.9 VOL% (35.7-47.0); Hemoglobin 9.5 GM/DL (12.0-16.0); Immature Granulocytes % 1.5 %; Lymphocytes # 0.5 10*3/uL (1.4-4.0); Lymphocytes % 7.3 % (21.3-54.2); Mean Corpuscular HGB Conc 32.9 GM/DL (32-36); Mean Corpuscular Hemoglobin 29 PG (27-34); Mean Corpuscular Volume 88.4 FL (87-102); Mean Platelet Volume 9.1 FL (9.6-12.0); Monocytes # 0.2 10*3/uL (0.11-0.8); Monocytes % 3.6 % (1.7-12.7); Neutrophils # 5.7 10*3/uL (1.4-7.4); Neutrophils % 84.2 % (38.7-73.9); Platelet Count 187 T/CUMM (130-400); Red Blood Count 3.27 MC/CUMM (3.8-5.5); Red Cell Distribution Width 15.8 % (9.3-17.3); White Blood Count 6.7 T/CUMM (4-12)
[2017-12-28 05:48] LABS: Calcium 9.5 MG/DL (8.5-10.1); Osmolality,Calculated 284.5 MOS/KG (273-304); Potassium 4.2 MMOL/L (3.5-5.1)
[2017-12-28] MEDS: VANCOMYCIN 50 MG/ML 60 ML/BOTTLE PO SCH ×3 (06:19→17:39)
[2017-12-28] MEDS: SUCRALFATE 1 GM/10 ML UDCUP PO SCH ×4 (08:37→21:54)
[2017-12-28] MEDS: LORazepam 2 MG/1 ML VIAL IV PRN (09:10)
[2017-12-28] MEDS: CARVEDILOL 25 MG TABLET PO SCH ×2 (15:06→21:54)
[2017-12-28] MEDS: MULTIVITAMIN (CENTRUM) TABLET PO SCH (15:06)
[2017-12-28] MEDS: ISOSORBIDE MONONITRATE 60 MG TABLET PO SCH (15:06)
[2017-12-28] MEDS: RANOLAZINE 500 MG TABLET PO SCH ×2 (15:06→21:54)
[2017-12-28] MEDS: FERROUS SULFATE 325 MG TABLET PO SCH (15:07)
[2017-12-28] MEDS: NITROGLYCERIN 2% OINT 1 INCH/GM PACK TOP SCH ×2 (15:07→21:56)
[2017-12-28] MEDS: ASPIRIN EC 81 MG TABLET PO SCH (15:07)
[2017-12-28] MEDS: ROSUVASTATIN 20 MG TABLET PO SCH (15:09)
[2017-12-28] MEDS: HYDROCORTISONE 10 MG TABLET PO SCH ×2 (15:09→21:54)
[2017-12-28] MEDS: APIXABAN 2.5 MG TABLET PO SCH (21:54)
[2017-12-29] MEDS: VANCOMYCIN 50 MG/ML 60 ML/BOTTLE PO SCH ×5 (00:25→17:02)
[2017-12-29 05:30] LABS: Basophils # 0.1 10*3/uL (0.0-0.2); Basophils % 0.8 % (0.0-0.8); Eosinophils # 0.3 10*3/uL (0.0-0.87); Eosinophils % 3.9 % (0.00-10.9); Hematocrit 29.7 VOL% (35.7-47.0); Hemoglobin 9.8 GM/DL (12.0-16.0); Immature Granulocytes % 0.8 %; Immature Granulocytes Absolute 0.05 #; Lymphocytes # 0.7 10*3/uL (1.4-4.0); Lymphocytes % 10.6 % (21.3-54.2); Mean Corpuscular Hemoglobin 29 PG (27-34); Mean Corpuscular Volume 87.9 FL (87-102); Mean Platelet Volume 9.1 FL (9.6-12.0); Monocytes # 0.5 10*3/uL (0.11-0.8); Monocytes % 7.3 % (1.7-12.7); Neutrophils # 4.9 10*3/uL (1.4-7.4); Neutrophils % 76.6 % (38.7-73.9); Platelet Count 203 T/CUMM (130-400); Red Blood Count 3.38 MC/CUMM (3.8-5.5); Red Cell Distribution Width 15.6 % (9.3-17.3); White Blood Count 6.3 T/CUMM (4-12)
[2017-12-29 06:01] LABS: Calcium 9.6 MG/DL (8.5-10.1); Osmolality,Calculated 278.1 MOS/KG (273-304); Potassium 4.4 MMOL/L (3.5-5.1)
[2017-12-29] MEDS: SUCRALFATE 1 GM/10 ML UDCUP PO SCH ×4 (09:17→21:28)
[2017-12-29] MEDS: RANOLAZINE 500 MG TABLET PO SCH ×2 (09:17→21:28)
[2017-12-29] MEDS: HYDROCORTISONE 10 MG TABLET PO SCH ×2 (09:17→21:28)
[2017-12-29] MEDS: CARVEDILOL 25 MG TABLET PO SCH ×2 (09:18→21:28)
[2017-12-29] MEDS: APIXABAN 2.5 MG TABLET PO SCH ×2 (09:18→21:28)
[2017-12-29] MEDS: LORazepam 2 MG/1 ML VIAL IV PRN (09:18)
[2017-12-29] MEDS: MULTIVITAMIN (CENTRUM) TABLET PO SCH (09:18)
[2017-12-29] MEDS: ISOSORBIDE MONONITRATE 60 MG TABLET PO SCH (09:18)
[2017-12-29] MEDS: CLOPIDOGREL 75 MG TABLET PO SCH (09:18)
[2017-12-29] MEDS: ASPIRIN EC 81 MG TABLET PO SCH (09:18)
[2017-12-29] MEDS: FERROUS SULFATE 325 MG TABLET PO SCH (09:18)
[2017-12-29] MEDS: ROSUVASTATIN 20 MG TABLET PO SCH (09:18)
[2017-12-29] MEDS: NITROGLYCERIN 2% OINT 1 INCH/GM PACK TOP SCH ×2 (09:19→21:28)
[2017-12-29] MEDS: amLODIPine 10 MG TABLET PO SCH (13:58)
[2017-12-29] MEDS: ONDANSETRON 4 MG/2 ML VIAL IV PRN (17:43)
[2017-12-29] MEDS ORDERED: DEXTROSE 5% 1,000 ML IV SCH (20:30)
[2017-12-30] MEDS: VANCOMYCIN 50 MG/ML 60 ML/BOTTLE PO SCH ×4 (01:40→18:15)
[2017-12-30 05:49] LABS: Basophils # 0.1 10*3/uL (0.0-0.2); Basophils % 1.3 % (0.0-0.8); Eosinophils # 0.3 10*3/uL (0.0-0.87); Eosinophils % 6.3 % (0.00-10.9); Hematocrit 29.1 VOL% (35.7-47.0); Immature Granulocytes % 0.8 %; Immature Granulocytes Absolute 0.04 #; Lymphocytes # 0.8 10*3/uL (1.4-4.0); Lymphocytes % 15.7 % (21.3-54.2); Mean Corpuscular HGB Conc 34.4 GM/DL (32-36); Mean Corpuscular Hemoglobin 29 PG (27-34); Mean Corpuscular Volume 84.8 FL (87-102); Mean Platelet Volume 9.2 FL (9.6-12.0); Monocytes # 0.4 10*3/uL (0.11-0.8); Neutrophils # 3.5 10*3/uL (1.4-7.4); Neutrophils % 67.9 % (38.7-73.9); Platelet Count 199 T/CUMM (130-400); Red Blood Count 3.43 MC/CUMM (3.8-5.5); Red Cell Distribution Width 15.6 % (9.3-17.3); White Blood Count 5.2 T/CUMM (4-12)
[2017-12-30 06:06] LABS: Calcium 9.4 MG/DL (8.5-10.1); Osmolality,Calculated 279.1 MOS/KG (273-304); Potassium 4.5 MMOL/L (3.5-5.1)
[2017-12-30] MEDS: SUCRALFATE 1 GM/10 ML UDCUP PO SCH ×4 (08:58→20:36)
[2017-12-30] MEDS: RANOLAZINE 500 MG TABLET PO SCH ×2 (10:02→20:36)
[2017-12-30] MEDS: FERROUS SULFATE 325 MG TABLET PO SCH (10:03)
[2017-12-30] MEDS: CARVEDILOL 25 MG TABLET PO SCH ×2 (10:03→20:36)
[2017-12-30] MEDS: CLOPIDOGREL 75 MG TABLET PO SCH (10:03)
[2017-12-30] MEDS: ROSUVASTATIN 20 MG TABLET PO SCH (10:03)
[2017-12-30] MEDS: ISOSORBIDE MONONITRATE 60 MG TABLET PO SCH (10:03)
[2017-12-30] MEDS: ASPIRIN EC 81 MG TABLET PO SCH (10:03)
[2017-12-30] MEDS: amLODIPine 10 MG TABLET PO SCH (10:03)
[2017-12-30] MEDS: APIXABAN 2.5 MG TABLET PO SCH (10:03)
[2017-12-30] MEDS: MULTIVITAMIN (CENTRUM) TABLET PO SCH (10:03)
[2017-12-30] MEDS: HYDROCORTISONE 10 MG TABLET PO SCH ×2 (10:03→20:36)
[2017-12-30] MEDS: LORazepam 2 MG/1 ML VIAL IV PRN (10:07)
[2017-12-30] MEDS: NITROGLYCERIN 2% OINT 1 INCH/GM PACK TOP SCH (10:10)
[2017-12-31] MEDS: APIXABAN 2.5 MG TABLET PO SCH ×3 (00:40→21:45)
[2017-12-31] MEDS: VANCOMYCIN 50 MG/ML 60 ML/BOTTLE PO SCH ×4 (00:40→18:16)
[2017-12-31] MEDS: NITROGLYCERIN 2% OINT 1 INCH/GM PACK TOP SCH ×3 (00:54→21:46)
[2017-12-31] MEDS: LORazepam 2 MG/1 ML VIAL IV PRN ×2 (06:55→22:14)
[2017-12-31] MEDS: ROSUVASTATIN 20 MG TABLET PO SCH (14:10)
[2017-12-31] MEDS: ISOSORBIDE MONONITRATE 60 MG TABLET PO SCH (14:10)
[2017-12-31] MEDS: CLOPIDOGREL 75 MG TABLET PO SCH (14:10)
[2017-12-31] MEDS: MULTIVITAMIN (CENTRUM) TABLET PO SCH (14:10)
[2017-12-31] MEDS: RANOLAZINE 500 MG TABLET PO SCH ×2 (14:10→21:45)
[2017-12-31] MEDS: HYDROCORTISONE 10 MG TABLET PO SCH ×2 (14:10→21:45)
[2017-12-31] MEDS: FERROUS SULFATE 325 MG TABLET PO SCH (14:10)
[2017-12-31] MEDS: CARVEDILOL 25 MG TABLET PO SCH ×2 (14:11→21:45)
[2017-12-31] MEDS: amLODIPine 10 MG TABLET PO SCH (14:11)
[2017-12-31] MEDS: SUCRALFATE 1 GM/10 ML UDCUP PO SCH ×3 (14:11→21:46)
[2017-12-31] MEDS: ASPIRIN EC 81 MG TABLET PO SCH (14:11)
[2017-12-31] MEDS: levETIRAcetam 250 MG TABLET PO SCH (21:45)
[2018-01-01] MEDS: VANCOMYCIN 50 MG/ML 60 ML/BOTTLE PO SCH ×4 (00:57→17:38)
[2018-01-01] MEDS: LORazepam 2 MG/1 ML VIAL IV PRN (04:50)
[2018-01-01] MEDS: ACETAMINOPHEN 325 MG TABLET PO PRN ×2 (05:13→21:48)
[2018-01-01] MEDS: APIXABAN 2.5 MG TABLET PO SCH ×2 (09:28→21:47)
[2018-01-01] MEDS: SUCRALFATE 1 GM/10 ML UDCUP PO SCH ×4 (09:28→21:48)
[2018-01-01] MEDS: ASPIRIN EC 81 MG TABLET PO SCH (09:28)
[2018-01-01] MEDS: ISOSORBIDE MONONITRATE 60 MG TABLET PO SCH (09:28)
[2018-01-01] MEDS: levETIRAcetam 250 MG TABLET PO SCH (09:29)
[2018-01-01] MEDS: amLODIPine 10 MG TABLET PO SCH (09:29)
[2018-01-01] MEDS: CLOPIDOGREL 75 MG TABLET PO SCH (09:29)
[2018-01-01] MEDS: MULTIVITAMIN (CENTRUM) TABLET PO SCH (09:29)
[2018-01-01] MEDS: CARVEDILOL 25 MG TABLET PO SCH ×2 (09:29→21:48)
[2018-01-01] MEDS: ROSUVASTATIN 20 MG TABLET PO SCH (09:29)
[2018-01-01] MEDS: FERROUS SULFATE 325 MG TABLET PO SCH (09:29)
[2018-01-01] MEDS: NITROGLYCERIN 2% OINT 1 INCH/GM PACK TOP SCH ×2 (09:30→21:49)
[2018-01-01] MEDS: RANOLAZINE 500 MG TABLET PO SCH ×2 (09:39→21:47)
[2018-01-01] MEDS: HYDROCORTISONE 10 MG TABLET PO SCH (10:21)
[2018-01-02] MEDS: VANCOMYCIN 50 MG/ML 60 ML/BOTTLE PO SCH ×4 (00:17→18:54)
[2018-01-02 04:20] LABS: Basophils # 0.1 10*3/uL (0.0-0.2); Basophils % 0.8 % (0.0-0.8); Eosinophils # 0.5 10*3/uL (0.0-0.87); Eosinophils % 5.7 % (0.00-10.9); Hematocrit 25.7 VOL% (35.7-47.0); Hemoglobin 8.9 GM/DL (12.0-16.0); Immature Granulocytes % 0.5 %; Immature Granulocytes Absolute 0.04 #; Lymphocytes # 0.7 10*3/uL (1.4-4.0); Lymphocytes % 7.9 % (21.3-54.2); Mean Corpuscular HGB Conc 34.6 GM/DL (32-36); Mean Corpuscular Hemoglobin 30 PG (27-34); Mean Corpuscular Volume 85.1 FL (87-102); Mean Platelet Volume 9.3 FL (9.6-12.0); Monocytes # 0.8 10*3/uL (0.11-0.8); Monocytes % 9.7 % (1.7-12.7); Neutrophils # 6.5 10*3/uL (1.4-7.4); Neutrophils % 75.4 % (38.7-73.9); Platelet Count 219 T/CUMM (130-400); Red Blood Count 3.02 MC/CUMM (3.8-5.5); Red Cell Distribution Width 15.7 % (9.3-17.3); White Blood Count 8.6 T/CUMM (4-12)
[2018-01-02 04:58] LABS: Calcium 9.7 MG/DL (8.5-10.1); Osmolality,Calculated 270.7 MOS/KG (273-304); Potassium 4.5 MMOL/L (3.5-5.1)
[2018-01-02] MEDS: RANOLAZINE 500 MG TABLET PO SCH ×2 (09:07→21:55)
[2018-01-02] MEDS: ASPIRIN EC 81 MG TABLET PO SCH (09:07)
[2018-01-02] MEDS: ISOSORBIDE MONONITRATE 60 MG TABLET PO SCH (09:08)
[2018-01-02] MEDS: amLODIPine 10 MG TABLET PO SCH (09:08)
[2018-01-02] MEDS: APIXABAN 2.5 MG TABLET PO SCH ×2 (09:08→21:56)
[2018-01-02] MEDS: MULTIVITAMIN (CENTRUM) TABLET PO SCH (09:08)
[2018-01-02] MEDS: CLOPIDOGREL 75 MG TABLET PO SCH (09:08)
[2018-01-02] MEDS: CARVEDILOL 25 MG TABLET PO SCH ×2 (09:09→21:55)
[2018-01-02] MEDS: ROSUVASTATIN 20 MG TABLET PO SCH (09:09)
[2018-01-02] MEDS: SUCRALFATE 1 GM/10 ML UDCUP PO SCH ×4 (09:09→21:56)
[2018-01-02] MEDS: FERROUS SULFATE 325 MG TABLET PO SCH (09:09)
[2018-01-02] MEDS: NITROGLYCERIN 2% OINT 1 INCH/GM PACK TOP SCH ×2 (09:10→21:56)
[2018-01-03] MEDS: VANCOMYCIN 50 MG/ML 60 ML/BOTTLE PO SCH ×5 (00:28→23:57)
[2018-01-03] MEDS: ASPIRIN EC 81 MG TABLET PO SCH (09:47)
[2018-01-03] MEDS: ROSUVASTATIN 20 MG TABLET PO SCH (09:47)
[2018-01-03] MEDS: SUCRALFATE 1 GM/10 ML UDCUP PO SCH ×4 (09:47→21:43)
[2018-01-03] MEDS: MULTIVITAMIN (CENTRUM) TABLET PO SCH (09:47)
[2018-01-03] MEDS: CLOPIDOGREL 75 MG TABLET PO SCH (09:47)
[2018-01-03] MEDS: ISOSORBIDE MONONITRATE 60 MG TABLET PO SCH (09:47)
[2018-01-03] MEDS: RANOLAZINE 500 MG TABLET PO SCH ×2 (09:47→21:43)
[2018-01-03] MEDS: CARVEDILOL 25 MG TABLET PO SCH ×2 (09:47→21:43)
[2018-01-03] MEDS: NITROGLYCERIN 2% OINT 1 INCH/GM PACK TOP SCH ×2 (09:48→21:43)
[2018-01-03] MEDS: APIXABAN 2.5 MG TABLET PO SCH ×2 (09:48→21:43)
[2018-01-03] MEDS: FERROUS SULFATE 325 MG TABLET PO SCH (09:48)
[2018-01-03] MEDS: amLODIPine 10 MG TABLET PO SCH (09:48)
[2018-01-04] MEDS: VANCOMYCIN 50 MG/ML 60 ML/BOTTLE PO SCH ×3 (05:36→18:43)
[2018-01-04] MEDS: ACETAMINOPHEN 325 MG TABLET PO PRN ×2 (05:36→11:30)
[2018-01-04] MEDS: SUCRALFATE 1 GM/10 ML UDCUP PO SCH ×4 (11:02→22:05)
[2018-01-04 12:41] LABS: Basophils # 0.1 10*3/uL (0.0-0.2); Basophils % 0.5 % (0.0-0.8); Eosinophils % 0.1 % (0.00-10.9); Hematocrit 22.5 VOL% (35.7-47.0); Hemoglobin 7.8 GM/DL (12.0-16.0); Immature Granulocytes % 0.4 %; Immature Granulocytes Absolute 0.04 #; Lymphocytes # 0.4 10*3/uL (1.4-4.0); Lymphocytes % 3.9 % (21.3-54.2); Mean Corpuscular HGB Conc 34.7 GM/DL (32-36); Mean Corpuscular Hemoglobin 30 PG (27-34); Mean Corpuscular Volume 87.5 FL (87-102); Mean Platelet Volume 9.3 FL (9.6-12.0); Monocytes # 0.7 10*3/uL (0.11-0.8); Monocytes % 7.1 % (1.7-12.7); Neutrophils # 8.1 10*3/uL (1.4-7.4); Platelet Count 256 T/CUMM (130-400); Red Blood Count 2.57 MC/CUMM (3.8-5.5); White Blood Count 9.3 T/CUMM (4-12)
[2018-01-04 13:18] LABS: INR 1.1; PT Patient Result 11.2 SECS; Partial Thromboplastin Time 34.1 SECS (0-40)
[2018-01-04 14:20] LABS: Band Neutrophils 1 % (0-10); Eosinophils 2 % (0-10); Lymphocytes 6 % (20-55); Segmented Neutrophils 87 % (50-85); Total Cells Counted 100
[2018-01-04] MEDS: ASPIRIN EC 81 MG TABLET PO SCH (14:32)
[2018-01-04] MEDS: CLOPIDOGREL 75 MG TABLET PO SCH (14:33)
[2018-01-04] MEDS: MULTIVITAMIN (CENTRUM) TABLET PO SCH (15:44)
[2018-01-04] MEDS: ROSUVASTATIN 20 MG TABLET PO SCH (15:44)
[2018-01-04] MEDS: ISOSORBIDE MONONITRATE 60 MG TABLET PO SCH (15:44)
[2018-01-04] MEDS: RANOLAZINE 500 MG TABLET PO SCH ×2 (15:44→22:05)
[2018-01-04] MEDS: FERROUS SULFATE 325 MG TABLET PO SCH (15:45)
[2018-01-04] MEDS: APIXABAN 2.5 MG TABLET PO SCH ×2 (15:45→22:06)
[2018-01-04] MEDS: amLODIPine 10 MG TABLET PO SCH (15:45)
[2018-01-04] MEDS: CARVEDILOL 25 MG TABLET PO SCH ×2 (15:46→22:06)
[2018-01-04] MEDS: NITROGLYCERIN 2% OINT 1 INCH/GM PACK TOP SCH (15:46)
[2018-01-04] MEDS: DICLOFENAC 1% GEL 100 GM TUBE TOP SCH ×3 (15:53→21:50)
[2018-01-04] MEDS ORDERED: SODIUM CHLORIDE 0.9% 1,000 ML IV PRN (15:54)
[2018-01-05 05:03] LABS: Basophils # 0.1 10*3/uL (0.0-0.2); Basophils % 0.7 % (0.0-0.8); Eosinophils % 0.4 % (0.00-10.9); Hematocrit 28.3 VOL% (35.7-47.0); Hemoglobin 9.8 GM/DL (12.0-16.0); Immature Granulocytes % 0.4 %; Immature Granulocytes Absolute 0.03 #; Lymphocytes # 0.6 10*3/uL (1.4-4.0); Lymphocytes % 7.3 % (21.3-54.2); Mean Corpuscular HGB Conc 34.6 GM/DL (32-36); Mean Corpuscular Hemoglobin 30 PG (27-34); Mean Corpuscular Volume 86.3 FL (87-102); Mean Platelet Volume 9.1 FL (9.6-12.0); Monocytes # 0.9 10*3/uL (0.11-0.8); Monocytes % 10.5 % (1.7-12.7); Neutrophils # 6.8 10*3/uL (1.4-7.4); Neutrophils % 80.7 % (38.7-73.9); Platelet Count 291 T/CUMM (130-400); Red Blood Count 3.28 MC/CUMM (3.8-5.5); Red Cell Distribution Width 15.7 % (9.3-17.3); White Blood Count 8.4 T/CUMM (4-12)
[2018-01-05] MEDS: NITROGLYCERIN 2% OINT 1 INCH/GM PACK TOP SCH ×3 (08:04→21:14)
[2018-01-05] MEDS: VANCOMYCIN 50 MG/ML 60 ML/BOTTLE PO SCH ×3 (08:05→17:32)
[2018-01-05] MEDS ORDERED: HALOPERIDOL 5 MG/ML AMP IM ONE (08:29)
[2018-01-05 08:48] LABS: ABG Base Excess 4.3 MMOL/L (-2.5-2.5); ABG HCO3 28.2 MMOL/L (20-26); ABG Oxygen Saturation 94.2 % (95-100); ABG PCO2 46.7 MM HG (35-48); ABG PO2 70.6 MM HG (80-95); ABG TCO2 27.1 MMOL/L (23-27)
[2018-01-05 10:15] LABS: Basophils # 0.1 10*3/uL (0.0-0.2); Basophils % 0.5 % (0.0-0.8); Hematocrit 28.9 VOL% (35.7-47.0); Hemoglobin 9.7 GM/DL (12.0-16.0); Immature Granulocytes % 0.3 %; Immature Granulocytes Absolute 0.03 #; Lymphocytes # 0.4 10*3/uL (1.4-4.0); Lymphocytes % 4.2 % (21.3-54.2); Mean Corpuscular HGB Conc 33.6 GM/DL (32-36); Mean Corpuscular Hemoglobin 30 PG (27-34); Mean Corpuscular Volume 88.7 FL (87-102); Mean Platelet Volume 9.2 FL (9.6-12.0); Monocytes # 0.7 10*3/uL (0.11-0.8); Monocytes % 7.1 % (1.7-12.7); Neutrophils # 8.6 10*3/uL (1.4-7.4); Neutrophils % 87.9 % (38.7-73.9); Platelet Count 292 T/CUMM (130-400); Red Blood Count 3.26 MC/CUMM (3.8-5.5); Red Cell Distribution Width 15.7 % (9.3-17.3); White Blood Count 9.8 T/CUMM (4-12)
[2018-01-05] MEDS: MULTIVITAMIN (CENTRUM) TABLET PO SCH (10:35)
[2018-01-05] MEDS: CARVEDILOL 25 MG TABLET PO SCH ×2 (10:35→21:14)
[2018-01-05] MEDS: ROSUVASTATIN 20 MG TABLET PO SCH (10:36)
[2018-01-05] MEDS: FERROUS SULFATE 325 MG TABLET PO SCH (10:38)
[2018-01-05] MEDS: ISOSORBIDE MONONITRATE 60 MG TABLET PO SCH (10:38)
[2018-01-05] MEDS: amLODIPine 10 MG TABLET PO SCH (10:38)
[2018-01-05] MEDS: RANOLAZINE 500 MG TABLET PO SCH ×2 (10:38→21:15)
[2018-01-05] MEDS: DICLOFENAC 1% GEL 100 GM TUBE TOP SCH ×3 (10:43→16:38)
[2018-01-05 10:49] LABS: Calcium 9.6 MG/DL (8.5-10.1); Osmolality,Calculated 277.7 MOS/KG (273-304); Potassium 4.3 MMOL/L (3.5-5.1)
[2018-01-05] MEDS: SUCRALFATE 1 GM/10 ML UDCUP PO SCH ×4 (12:30→21:17)
[2018-01-05 13:09] LABS: Eosinophils 1 % (0-10); Lymphocytes 6 % (20-55); Platelet Estimate Normal; Schistocytes Slight; Segmented Neutrophils 89 % (50-85); Total Cells Counted 100
[2018-01-05] MEDS ORDERED: LORazepam 2 MG/1 ML VIAL IV PRN (19:42)
[2018-01-05] MEDS ORDERED: SODIUM CHLORIDE 0.9% 250 ML IV ONE (20:18)
[2018-01-06] MEDS: DEXTROSE 50% 25 GM/50 ML VIAL IV PRN ×2 (01:10→05:45)
[2018-01-06] MEDS: VANCOMYCIN 50 MG/ML 60 ML/BOTTLE PO SCH ×5 (01:47→23:46)
[2018-01-06] MEDS: DICLOFENAC 1% GEL 100 GM TUBE TOP SCH ×5 (01:47→21:06)
[2018-01-06] MEDS: RANOLAZINE 500 MG TABLET PO SCH ×2 (11:51→21:06)
[2018-01-06] MEDS: FERROUS SULFATE 325 MG TABLET PO SCH (11:52)
[2018-01-06] MEDS: amLODIPine 10 MG TABLET PO SCH (11:52)
[2018-01-06] MEDS: NITROGLYCERIN 2% OINT 1 INCH/GM PACK TOP SCH ×2 (11:52→20:57)
[2018-01-06] MEDS: ISOSORBIDE MONONITRATE 60 MG TABLET PO SCH (11:52)
[2018-01-06] MEDS: ROSUVASTATIN 20 MG TABLET PO SCH (11:52)
[2018-01-06] MEDS: MULTIVITAMIN (CENTRUM) TABLET PO SCH (11:52)
[2018-01-06] MEDS: CARVEDILOL 25 MG TABLET PO SCH ×2 (11:52→20:57)
[2018-01-06] MEDS: SUCRALFATE 1 GM/10 ML UDCUP PO SCH ×4 (11:53→21:05)
[2018-01-06] MEDS ORDERED: AMIKACIN 700 MG in SODIUM CHLORIDE 0.9% 100 ML IV ONE (12:30)
[2018-01-06] MEDS: ACETAMINOPHEN 325 MG TABLET PO PRN (15:17)
[2018-01-06] MEDS: levETIRAcetam LIQUID 100 MG/ML 30 ML/BOTTLE PO SCH (21:05)
[2018-01-07] MEDS ORDERED: LORazepam 2 MG/1 ML VIAL IV ONE (03:00)
[2018-01-07 04:14] LABS: Basophils % 0.4 % (0.0-0.8); Eosinophils # 0.1 10*3/uL (0.0-0.87); Hematocrit 22.5 VOL% (35.7-47.0); Hemoglobin 7.4 GM/DL (12.0-16.0); Immature Granulocytes % 0.6 %; Immature Granulocytes Absolute 0.05 #; Lymphocytes # 0.6 10*3/uL (1.4-4.0); Lymphocytes % 7.1 % (21.3-54.2); Mean Corpuscular HGB Conc 32.9 GM/DL (32-36); Mean Corpuscular Hemoglobin 30 PG (27-34); Mean Corpuscular Volume 90.4 FL (87-102); Mean Platelet Volume 9.3 FL (9.6-12.0); Monocytes # 0.9 10*3/uL (0.11-0.8); Neutrophils # 6.3 10*3/uL (1.4-7.4); Neutrophils % 79.9 % (38.7-73.9); Platelet Count 245 T/CUMM (130-400); Red Blood Count 2.49 MC/CUMM (3.8-5.5); Red Cell Distribution Width 15.9 % (9.3-17.3); White Blood Count 7.9 T/CUMM (4-12)
[2018-01-07 05:03] LABS: Calcium 9.4 MG/DL (8.5-10.1); Osmolality,Calculated 290.4 MOS/KG (273-304); Potassium 3.9 MMOL/L (3.5-5.1); Troponin I 0.046 NG/ML (0.00-0.045)
[2018-01-07] MEDS: DEXTROSE 50% 25 GM/50 ML VIAL IV PRN ×2 (05:14→13:41)
[2018-01-07] MEDS: VANCOMYCIN 50 MG/ML 60 ML/BOTTLE PO SCH ×4 (06:01→23:55)
[2018-01-07] MEDS: MULTIVITAMIN (CENTRUM) TABLET PO SCH (09:14)
[2018-01-07] MEDS: ROSUVASTATIN 20 MG TABLET PO SCH (09:14)
[2018-01-07] MEDS: RANOLAZINE 500 MG TABLET PO SCH ×2 (09:14→20:41)
[2018-01-07] MEDS: FERROUS SULFATE 325 MG TABLET PO SCH (09:14)
[2018-01-07] MEDS: NITROGLYCERIN 2% OINT 1 INCH/GM PACK TOP SCH ×2 (09:15→20:42)
[2018-01-07] MEDS: SUCRALFATE 1 GM/10 ML UDCUP PO SCH ×4 (09:15→20:42)
[2018-01-07] MEDS: CARVEDILOL 25 MG TABLET PO SCH ×2 (09:15→20:41)
[2018-01-07] MEDS: ISOSORBIDE MONONITRATE 60 MG TABLET PO SCH (09:15)
[2018-01-07] MEDS: amLODIPine 10 MG TABLET PO SCH (09:16)
[2018-01-07] MEDS: DICLOFENAC 1% GEL 100 GM TUBE TOP SCH ×4 (09:16→21:33)
[2018-01-07] MEDS: levETIRAcetam LIQUID 100 MG/ML 30 ML/BOTTLE PO SCH ×2 (09:17→20:42)
[2018-01-07] MEDS ORDERED: SODIUM CHLORIDE 0.9% 1,000 ML IV PRN (10:41)
[2018-01-07] MEDS ORDERED: GLUCAGON 1 MG VIAL IM PRN (13:43)
[2018-01-08 05:01] LABS: Prealbumin 19.3 MG/DL (20-40)
[2018-01-08] MEDS: VANCOMYCIN 50 MG/ML 60 ML/BOTTLE PO SCH ×3 (06:22→22:20)
[2018-01-08] MEDS: CARVEDILOL 25 MG TABLET PO SCH ×2 (08:52→20:28)
[2018-01-08] MEDS: ISOSORBIDE MONONITRATE 60 MG TABLET PO SCH (08:52)
[2018-01-08] MEDS: ROSUVASTATIN 20 MG TABLET PO SCH (08:52)
[2018-01-08] MEDS: MULTIVITAMIN (CENTRUM) TABLET PO SCH (08:52)
[2018-01-08] MEDS: FERROUS SULFATE 325 MG TABLET PO SCH (08:52)
[2018-01-08] MEDS: amLODIPine 10 MG TABLET PO SCH (08:52)
[2018-01-08] MEDS: RANOLAZINE 500 MG TABLET PO SCH ×2 (08:52→20:28)
[2018-01-08] MEDS: SUCRALFATE 1 GM/10 ML UDCUP PO SCH ×4 (08:53→20:28)
[2018-01-08] MEDS: levETIRAcetam LIQUID 100 MG/ML 30 ML/BOTTLE PO SCH ×2 (09:00→20:28)
[2018-01-08] MEDS: NITROGLYCERIN 2% OINT 1 INCH/GM PACK TOP SCH ×2 (12:33→20:28)
[2018-01-08] MEDS: DICLOFENAC 1% GEL 100 GM TUBE TOP SCH ×4 (12:33→20:29)
[2018-01-08] MEDS: ACETAMINOPHEN 325 MG TABLET PO PRN (20:28)
[2018-01-09 03:17] LABS: Basophils % 0.2 % (0.0-0.8); Eosinophils # 0.5 10*3/uL (0.0-0.87); Eosinophils % 9.1 % (0.00-10.9); Hematocrit 27.8 VOL% (35.7-47.0); Hemoglobin 9.5 GM/DL (12.0-16.0); Immature Granulocytes % 0.6 %; Immature Granulocytes Absolute 0.03 #; Lymphocytes # 0.5 10*3/uL (1.4-4.0); Lymphocytes % 8.9 % (21.3-54.2); Mean Corpuscular HGB Conc 34.2 GM/DL (32-36); Mean Corpuscular Hemoglobin 29 PG (27-34); Mean Corpuscular Volume 85.5 FL (87-102); Mean Platelet Volume 9.5 FL (9.6-12.0); Monocytes # 0.6 10*3/uL (0.11-0.8); Monocytes % 11.9 % (1.7-12.7); Neutrophils # 3.7 10*3/uL (1.4-7.4); Neutrophils % 69.3 % (38.7-73.9); Platelet Count 191 T/CUMM (130-400); Red Blood Count 3.25 MC/CUMM (3.8-5.5); Red Cell Distribution Width 15.4 % (9.3-17.3); White Blood Count 5.4 T/CUMM (4-12)
[2018-01-09 03:54] LABS: Calcium 9.3 MG/DL (8.5-10.1); Osmolality,Calculated 276.2 MOS/KG (273-304); Potassium 3.1 MMOL/L (3.5-5.1)
[2018-01-09] MEDS: POTASSIUM CHLORIDE 20 MEQ TABLET PO PRN ×3 (05:11→21:52)
[2018-01-09] MEDS: VANCOMYCIN 50 MG/ML 60 ML/BOTTLE PO SCH ×2 (05:37→21:52)
[2018-01-09] MEDS: MULTIVITAMIN (CENTRUM) TABLET PO SCH (08:32)
[2018-01-09] MEDS: ISOSORBIDE MONONITRATE 60 MG TABLET PO SCH (08:32)
[2018-01-09] MEDS: CARVEDILOL 25 MG TABLET PO SCH (08:32)
[2018-01-09] MEDS: NITROGLYCERIN 2% OINT 1 INCH/GM PACK TOP SCH ×2 (08:32→21:51)
[2018-01-09] MEDS: SUCRALFATE 1 GM/10 ML UDCUP PO SCH ×4 (08:32→20:38)
[2018-01-09] MEDS: FERROUS SULFATE 325 MG TABLET PO SCH (08:32)
[2018-01-09] MEDS: ROSUVASTATIN 20 MG TABLET PO SCH (08:33)
[2018-01-09] MEDS: RANOLAZINE 500 MG TABLET PO SCH ×2 (08:33→20:38)
[2018-01-09] MEDS: DICLOFENAC 1% GEL 100 GM TUBE TOP SCH ×4 (08:33→20:39)
[2018-01-09] MEDS: levETIRAcetam LIQUID 100 MG/ML 30 ML/BOTTLE PO SCH (09:40)
[2018-01-09] MEDS: CARVEDILOL 12.5 MG TABLET PO SCH ×2 (09:40→20:39)
[2018-01-09] MEDS: levETIRAcetam 250 MG TABLET PO SCH (20:38)
[2018-01-10 05:33] LABS: Calcium 9.6 MG/DL (8.5-10.1); Osmolality,Calculated 267.4 MOS/KG (273-304); Potassium 4.5 MMOL/L (3.5-5.1)
[2018-01-10] MEDS: RANOLAZINE 500 MG TABLET PO SCH ×2 (11:00→21:33)
[2018-01-10] MEDS: ISOSORBIDE MONONITRATE 60 MG TABLET PO SCH (11:00)
[2018-01-10] MEDS: MULTIVITAMIN (CENTRUM) TABLET PO SCH (11:00)
[2018-01-10] MEDS: ROSUVASTATIN 20 MG TABLET PO SCH (11:00)
[2018-01-10] MEDS: CARVEDILOL 12.5 MG TABLET PO SCH ×2 (11:00→21:33)
[2018-01-10] MEDS: DICLOFENAC 1% GEL 100 GM TUBE TOP SCH ×4 (11:01→21:37)
[2018-01-10] MEDS: NITROGLYCERIN 2% OINT 1 INCH/GM PACK TOP SCH ×2 (11:01→21:33)
[2018-01-10] MEDS: VANCOMYCIN 50 MG/ML 60 ML/BOTTLE PO SCH ×2 (11:01→21:34)
[2018-01-10] MEDS: FERROUS SULFATE 325 MG TABLET PO SCH (11:01)
[2018-01-10] MEDS: levETIRAcetam 250 MG TABLET PO SCH ×2 (11:01→21:33)
[2018-01-10] MEDS: SUCRALFATE 1 GM/10 ML UDCUP PO SCH ×4 (11:09→21:34)
[2018-01-10] MEDS: ACETAMINOPHEN 325 MG TABLET PO PRN (15:17)
[2018-01-11 05:21] LABS: Basophils % 0.1 % (0.0-0.8); Eosinophils # 0.5 10*3/uL (0.0-0.87); Hematocrit 31.4 VOL% (35.7-47.0); Hemoglobin 10.6 GM/DL (12.0-16.0); Immature Granulocytes % 0.7 %; Immature Granulocytes Absolute 0.05 #; Lymphocytes # 0.6 10*3/uL (1.4-4.0); Lymphocytes % 8.2 % (21.3-54.2); Mean Corpuscular HGB Conc 33.8 GM/DL (32-36); Mean Corpuscular Hemoglobin 30 PG (27-34); Mean Corpuscular Volume 87.7 FL (87-102); Mean Platelet Volume 9.2 FL (9.6-12.0); Monocytes # 0.8 10*3/uL (0.11-0.8); Monocytes % 12.2 % (1.7-12.7); Neutrophils # 4.9 10*3/uL (1.4-7.4); Neutrophils % 71.8 % (38.7-73.9); Platelet Count 228 T/CUMM (130-400); Red Blood Count 3.58 MC/CUMM (3.8-5.5); White Blood Count 6.8 T/CUMM (4-12)
[2018-01-11 05:27] LABS: Calcium 9.2 MG/DL (8.5-10.1); Osmolality,Calculated 270.7 MOS/KG (273-304); Potassium 4.4 MMOL/L (3.5-5.1)
[2018-01-11] MEDS: SUCRALFATE 1 GM/10 ML UDCUP PO SCH ×4 (08:37→21:32)
[2018-01-11] MEDS: FERROUS SULFATE 325 MG TABLET PO SCH (10:41)
[2018-01-11] MEDS: CARVEDILOL 12.5 MG TABLET PO SCH ×2 (10:41→21:31)
[2018-01-11] MEDS: MULTIVITAMIN (CENTRUM) TABLET PO SCH (10:41)
[2018-01-11] MEDS: ROSUVASTATIN 20 MG TABLET PO SCH (10:41)
[2018-01-11] MEDS: ISOSORBIDE MONONITRATE 60 MG TABLET PO SCH (10:41)
[2018-01-11] MEDS: NITROGLYCERIN 2% OINT 1 INCH/GM PACK TOP SCH ×2 (10:42→21:31)
[2018-01-11] MEDS: RANOLAZINE 500 MG TABLET PO SCH ×2 (10:42→21:31)
[2018-01-11] MEDS: levETIRAcetam 250 MG TABLET PO SCH ×2 (10:42→21:31)
[2018-01-11] MEDS: VANCOMYCIN 50 MG/ML 60 ML/BOTTLE PO SCH ×2 (10:42→21:32)
[2018-01-11] MEDS: DICLOFENAC 1% GEL 100 GM TUBE TOP SCH ×4 (10:43→21:31)
[2018-01-12 05:57] LABS: Basophils % 0.5 % (0.0-0.8); Eosinophils # 0.4 10*3/uL (0.0-0.87); Eosinophils % 6.7 % (0.00-10.9); Hematocrit 32.5 VOL% (35.7-47.0); Hemoglobin 10.9 GM/DL (12.0-16.0); Immature Granulocytes Absolute 0.06 #; Lymphocytes # 0.5 10*3/uL (1.4-4.0); Lymphocytes % 8.5 % (21.3-54.2); Mean Corpuscular HGB Conc 33.5 GM/DL (32-36); Mean Corpuscular Hemoglobin 29 PG (27-34); Mean Corpuscular Volume 87.6 FL (87-102); Mean Platelet Volume 9.6 FL (9.6-12.0); Monocytes # 0.8 10*3/uL (0.11-0.8); Monocytes % 13.3 % (1.7-12.7); Neutrophils # 4.3 10*3/uL (1.4-7.4); Platelet Count 229 T/CUMM (130-400); Red Blood Count 3.71 MC/CUMM (3.8-5.5); Red Cell Distribution Width 14.8 % (9.3-17.3); White Blood Count 6.1 T/CUMM (4-12)
[2018-01-12 06:28] LABS: Calcium 9.2 MG/DL (8.5-10.1); Osmolality,Calculated 267.8 MOS/KG (273-304); Potassium 4.5 MMOL/L (3.5-5.1)
[2018-01-12] MEDS: SUCRALFATE 1 GM/10 ML UDCUP PO SCH ×4 (07:30→20:45)
[2018-01-12] MEDS: ROSUVASTATIN 20 MG TABLET PO SCH (10:33)
[2018-01-12] MEDS: VANCOMYCIN 50 MG/ML 60 ML/BOTTLE PO SCH ×2 (10:33→20:45)
[2018-01-12] MEDS: MULTIVITAMIN (CENTRUM) TABLET PO SCH (10:33)
[2018-01-12] MEDS: RANOLAZINE 500 MG TABLET PO SCH ×2 (10:33→20:44)
[2018-01-12] MEDS: CARVEDILOL 12.5 MG TABLET PO SCH ×2 (10:33→20:44)
[2018-01-12] MEDS: levETIRAcetam 250 MG TABLET PO SCH ×2 (10:33→20:44)
[2018-01-12] MEDS: FERROUS SULFATE 325 MG TABLET PO SCH (10:34)
[2018-01-12] MEDS: DICLOFENAC 1% GEL 100 GM TUBE TOP SCH ×4 (10:34→20:45)
[2018-01-12] MEDS: ISOSORBIDE MONONITRATE 60 MG TABLET PO SCH (10:34)
[2018-01-12] MEDS: NITROGLYCERIN 2% OINT 1 INCH/GM PACK TOP SCH ×2 (10:34→20:44)
[2018-01-13 06:05] LABS: Calcium 9.7 MG/DL (8.5-10.1); Osmolality,Calculated 267.4 MOS/KG (273-304); Potassium 5.3 MMOL/L (3.5-5.1)
[2018-01-13] MEDS: FERROUS SULFATE 325 MG TABLET PO SCH (09:50)
[2018-01-13] MEDS: CARVEDILOL 12.5 MG TABLET PO SCH ×2 (09:50→20:30)
[2018-01-13] MEDS: ISOSORBIDE MONONITRATE 60 MG TABLET PO SCH (09:51)
[2018-01-13] MEDS: MULTIVITAMIN (CENTRUM) TABLET PO SCH (09:51)
[2018-01-13] MEDS: ROSUVASTATIN 20 MG TABLET PO SCH (09:51)
[2018-01-13] MEDS: SUCRALFATE 1 GM/10 ML UDCUP PO SCH ×4 (09:51→20:31)
[2018-01-13] MEDS: NITROGLYCERIN 2% OINT 1 INCH/GM PACK TOP SCH ×2 (09:51→20:31)
[2018-01-13] MEDS: levETIRAcetam 250 MG TABLET PO SCH ×2 (09:51→20:30)
[2018-01-13] MEDS: DICLOFENAC 1% GEL 100 GM TUBE TOP SCH ×4 (09:52→20:31)
[2018-01-13] MEDS: RANOLAZINE 500 MG TABLET PO SCH ×2 (09:52→20:30)
[2018-01-13] MEDS: VANCOMYCIN 50 MG/ML 60 ML/BOTTLE PO SCH ×2 (09:56→20:30)
[2018-01-13] MEDS ORDERED: VITAMIN A & D OINT 56.7 GM TUBE TOP PRN (11:43)
[2018-01-13] MEDS: ACETAMINOPHEN 325 MG TABLET PO PRN (13:09)
[2018-01-14] MEDS: SUCRALFATE 1 GM/10 ML UDCUP PO SCH ×4 (10:38→20:50)
[2018-01-14] MEDS: MULTIVITAMIN (CENTRUM) TABLET PO SCH (10:38)
[2018-01-14] MEDS: ISOSORBIDE MONONITRATE 60 MG TABLET PO SCH (10:39)
[2018-01-14] MEDS: CARVEDILOL 12.5 MG TABLET PO SCH ×2 (10:39→20:50)
[2018-01-14] MEDS: ROSUVASTATIN 20 MG TABLET PO SCH (10:39)
[2018-01-14] MEDS: FERROUS SULFATE 325 MG TABLET PO SCH (10:39)
[2018-01-14] MEDS: levETIRAcetam 250 MG TABLET PO SCH ×2 (10:40→20:50)
[2018-01-14] MEDS: NITROGLYCERIN 2% OINT 1 INCH/GM PACK TOP SCH ×2 (10:40→20:50)
[2018-01-14] MEDS: DICLOFENAC 1% GEL 100 GM TUBE TOP SCH ×4 (10:41→20:51)
[2018-01-14] MEDS: VANCOMYCIN 50 MG/ML 60 ML/BOTTLE PO SCH ×2 (10:41→20:49)
[2018-01-14] MEDS: RANOLAZINE 500 MG TABLET PO SCH ×2 (10:41→20:50)
[2018-01-14] MEDS: ACETAMINOPHEN 325 MG TABLET PO PRN (13:58)
[2018-01-15 05:45] LABS: Basophils % 0.7 % (0.0-0.8); Eosinophils # 0.3 10*3/uL (0.0-0.87); Eosinophils % 5.4 % (0.00-10.9); Hematocrit 31.4 VOL% (35.7-47.0); Hemoglobin 10.2 GM/DL (12.0-16.0); Immature Granulocytes Absolute 0.06 #; Lymphocytes # 0.6 10*3/uL (1.4-4.0); Lymphocytes % 10.2 % (21.3-54.2); Mean Corpuscular HGB Conc 32.5 GM/DL (32-36); Mean Corpuscular Hemoglobin 29 PG (27-34); Mean Platelet Volume 9.4 FL (9.6-12.0); Monocytes # 0.8 10*3/uL (0.11-0.8); Monocytes % 14.4 % (1.7-12.7); Neutrophils # 3.9 10*3/uL (1.4-7.4); Neutrophils % 68.3 % (38.7-73.9); Platelet Count 277 T/CUMM (130-400); Red Blood Count 3.57 MC/CUMM (3.8-5.5); White Blood Count 5.8 T/CUMM (4-12)
[2018-01-15 05:49] LABS: Calcium 9.8 MG/DL (8.5-10.1); Osmolality,Calculated 270.5 MOS/KG (273-304); Potassium 4.8 MMOL/L (3.5-5.1)
[2018-01-15] MEDS: SUCRALFATE 1 GM/10 ML UDCUP PO SCH ×4 (10:05→20:59)
[2018-01-15] MEDS: MULTIVITAMIN (CENTRUM) TABLET PO SCH (10:05)
[2018-01-15] MEDS: ISOSORBIDE MONONITRATE 60 MG TABLET PO SCH (10:06)
[2018-01-15] MEDS: levETIRAcetam 250 MG TABLET PO SCH ×2 (10:06→20:59)
[2018-01-15] MEDS: NITROGLYCERIN 2% OINT 1 INCH/GM PACK TOP SCH (10:06)
[2018-01-15] MEDS: CARVEDILOL 12.5 MG TABLET PO SCH ×2 (10:06→20:59)
[2018-01-15] MEDS: VANCOMYCIN 50 MG/ML 60 ML/BOTTLE PO SCH (10:06)
[2018-01-15] MEDS: DICLOFENAC 1% GEL 100 GM TUBE TOP SCH ×4 (10:06→21:01)
[2018-01-15] MEDS: ROSUVASTATIN 20 MG TABLET PO SCH (10:06)
[2018-01-15] MEDS: FERROUS SULFATE 325 MG TABLET PO SCH (10:06)
[2018-01-15] MEDS: RANOLAZINE 500 MG TABLET PO SCH ×2 (10:06→20:59)
[2018-01-15] MEDS: ACETAMINOPHEN 325 MG TABLET PO PRN ×2 (10:07→16:50)
[2018-01-15] MEDS ORDERED: TUBERCULIN SKIN TEST 0.1 ML SYRINGE INTRADERM ONE (17:14)
[2018-01-16] MEDS: DICLOFENAC 1% GEL 100 GM TUBE TOP SCH ×2 (09:12→15:29)
[2018-01-16] MEDS: SUCRALFATE 1 GM/10 ML UDCUP PO SCH ×2 (09:12→15:29)
[2018-01-16] MEDS: CARVEDILOL 12.5 MG TABLET PO SCH (15:21)
[2018-01-16] MEDS: ROSUVASTATIN 20 MG TABLET PO SCH (15:21)
[2018-01-16] MEDS: MULTIVITAMIN (CENTRUM) TABLET PO SCH (15:21)
[2018-01-16] MEDS: levETIRAcetam 250 MG TABLET PO SCH (15:29)
[2018-01-16] MEDS: FERROUS SULFATE 325 MG TABLET PO SCH (15:29)
[2018-01-16] MEDS: RANOLAZINE 500 MG TABLET PO SCH (15:29)
[2018-01-16] MEDS: ISOSORBIDE MONONITRATE 60 MG TABLET PO SCH (15:29)
[2018-01-16 17:01] VITALS: BP 153/103
== END 2018-01-16 17:21 | DRG 314 ==
LOC: N.ED 06:51 → N.EDINP 06:51 → N.TELES 09:55 → N.ICU 12-22 14:48 → SUATTDRO 12-22 15:18 → N.TELEN 12-25 16:40 → N.CC 01-05 09:14 → N.3E 01-09 19:01
PROVIDERS: ADMIT Internal Medicine; ATTEND Internal Medicine